=== PATIENT | female | born 1995 | race Caucasian/White ===

== ENCOUNTER 2020-05-21 14:39 | Outpatient (REF) | payer OTHER, SELFPAY ==
[2020-05-21 14:57] LABS: COVID-19 Test Negative (Negative); IDNOW Serial# 55D5AD1C
== END 2020-05-21 14:40 | disposition home or self-care (01) ==
LOC: HO.EMPCOV 14:39
PROVIDERS: Visit Provider Internal Medicine
DX: Z20.822 Contact with and (suspected) exposure to COVID-19 (principal)
CPT/HCPCS: 36415; 87635; C9803

== ENCOUNTER 2020-06-02 12:29 | Outpatient (REF) | payer OTHER, SELFPAY ==
[2020-06-02 14:26] LABS: Glucose Urine UA NEG (NEG); Leukocyte Esterase Urine TRACE (NEG); Nitrite Urine POS (NEG); Specific Gravity - Urine 1.025 (1.005-1.025); Urine Blood NEG (NEG); Urine Ketones NEG (NEG); Urine Protein NEG (NEG-TRACE)
[2020-06-02 14:30] LABS: Appearance Urine CLOUDY; Color Urine YELLOW
[2020-06-02 14:33] LABS: Bacteria Urine 3+ /LPF; Mucus Urine 2+ /LPF; RBC Urine 0 /HPF (0); Squamous Epithelial Cell Urine 2+ /LPF
== END 2020-06-02 12:30 | disposition home or self-care (01) ==
LOC: HO.LAB 12:29
PROVIDERS: Visit Provider Internal Medicine
DX: R30.0 Dysuria (principal)
CPT/HCPCS: 81001

== ENCOUNTER 2020-08-08 13:31 | Emergency (ER) | payer OTHER, SELFPAY ==
--- NOTE | ~2020-08-08 | XR_ITS ---
EXAMINATION: EXAMINATION: XR ABDOMEN CLINICAL INFORMATION: Evaluate stool burden COMPARISON: None TECHNIQUE: Frontal view. FINDINGS: There is increased amount of stool projecting over the distribution of the colon raising suspicion for constipation. There is no evidence of bowel obstruction, however. There is no evidence of abnormal calcifications. There is no acute skeletal structure changes. There is no evidence of small-bowel obstruction. There is no free air in the abdomen. XR/XR KUB IMPRESSION: Increased amount of stool in the colon suggesting constipation. Please correlate with clinical presentation.
[2020-08-08 13:48] VITALS: BP 123/75; PULSE 82; RESP 16; TEMP 36.5; O2SAT 99; BMI 22.4
[2020-08-08 14:45] LABS: Glucose Urine UA NEG (NEG); Leukocyte Esterase Urine NEG (NEG); Nitrite Urine NEG (NEG); PH 6.5 (5.0-8.0); Specific Gravity - Urine 1.015 (1.005-1.025); Urine Blood NEG (NEG); Urine Ketones NEG (NEG); Urine Protein NEG (NEG-TRACE)
[2020-08-08 14:49] LABS: Appearance Urine CLEAR; Color Urine YELLOW
[2020-08-08 14:50] LABS: UPreg QC Valid YES; Urine Pregnancy NEGATIVE (NEGATIVE)
--- NOTE | 2020-08-08 15:22 | ECG_ITS ---
Test Reason : SYNCOPE Blood Pressure : / mmHG Vent. Rate : 063 BPM Atrial Rate : 063 BPM P-R Int : 146 ms QRS Dur : 074 ms QT Int : 382 ms P-R-T Axes : 040 068 045 degrees QTc Int : 390 ms Normal sinus rhythm Normal ECG No previous ECGs available Referred By: Justyna Dumont Electronically Signed By:Ac Gill
[2020-08-08 15:50] VITALS: BP 109/55; PULSE 61
[2020-08-08 15:51] VITALS: BP 109/63; BP 114/75; PULSE 68; PULSE 72
[2020-08-08 15:52] VITALS: BP 109/55; PULSE 61; RESP 16; TEMP 37.1; O2SAT 98
--- NOTE | 2020-08-08 15:59 | ED_ITS ---
HPI - General Adult General Chief complaint: General Medical Stated complaint: DIZZNESS Time Seen by Provider: 08/08/20 15:15 Source: patient Mode of arrival: ambulatory Limitations: no limitations History of Present Illness HPI narrative: 24-year-old female previously healthy here with multiple complaints. The patient tells me that she has been constipated for the last 3 days and has only been able to pass a very small hard stools. No abdominal pain or vomiting. Has tried increasing her fluids and fruit intake with continued symptoms. Has not tried any dxnd-mlh-nhguoex medications. Also complaining of lightheadedness with position changes. No associated headache, chest pain, shortness of breath or palpitations. She is eating and drinking appropriately. Related Data Previous Rx's Medication Instructions Recorded carbamide peroxide 6.5 % ear drops 5 drp OTIC (EAR) RIGHT Q12H 4 Days 06/25/20 #15 ml ketoconazole 2 % shampoo 1 appl TOPICAL 2XW #120 ml 06/25/20 bisacodyl [Dulcolax (bisacodyl)] 5 mg PO BEDTIME 2 Days #2 tab 08/08/20 docusate sodium [Colace] 100 mg PO BID #20 cap 08/08/20 polyethylene glycol 3350 [Miralax] 17 g PO DAILY #238 g 08/08/20 Allergies Allergy/AdvReac Type Severity Reaction Status Date / Time No Known Allergies Allergy Verified 06/25/20 11:38 Review of Systems Review of Systems: Yes all other systems are reviewed and are negative Constitutional: Constitutional: Reports no additional constitutional complaints, Denies body ache(s), Denies chills, Denies fever(s), Denies headache(s) and Denies weakness Eyes: Eyes: Reports no additional eye complaints and Denies change in vision ENT: Reports dizziness, Denies headache(s) and Denies neck pain Cardiovascular: Cardiovascular: Reports no additional cardiovascular complaints, Denies chest pain, Denies leg edema and Denies dyspnea Respiratory: Respiratory: Reports no additional respiratory complaints, Denies cough and Denies dyspnea Gastrointestinal: Gastrointestinal: Denies abdominal pain, Reports constipation, Denies diarrhea, Denies nausea and Denies vomiting Genitourinary: Genitourinary: Reports no additional female genitourinary complaints and Denies urinary incontinence Musculoskeletal: Musculoskeletal: Reports no additional musculoskeletal complaints, Denies back pain, Denies arthralgias, Denies joint swelling, Denies neck pain, Denies numbness and Denies tingling Integumentary/Breasts: Skin/Breast: Reports system reviewed and no additional complaints, except as docu and Denies rash Neurologic: Denies Abnormal speech present, Reports dizziness, Denies headache(s), Denies numbness, Denies tingling and Denies weakness PMFSH Past Medical History Attestation statement: The following information was validated with the patient. Source: old records reviewed and nursing notes reviewed Medical History Seborrheic dermatitis Surgical History Finger laceration History of section Family History Family History Father Medical history unknown Mother No problems noted. Maternal Grandmother Breast cancer Diabetes Maternal Grandfather No problems noted. Social History Social History Alcohol intake: current Alcohol intake frequency: a few times a month Smoking Status: Never smoker Advance Directives: Yes Advance Directives Information Provided: Yes Advance Directives on File: No Physical Exam Vital Signs: Vital Signs: Last Vital Signs Temp 98.7 F 08/08/20 15:52 Pulse 61 08/08/20 15:52 Resp 16 08/08/20 15:52 BP 109/55 L 08/08/20 15:52 Pulse Ox 98 08/08/20 15:52 Body Mass Index 22.4 Const: General: cooperative, healthy appearing, comfortable and no acute distress Orientation/consciousness: patient oriented x3 Limitations: no limitations HENMT: Head: Yes normal to inspection Ears: hearing grossly normal bilaterally General nose exam: Normal external nose present Face and sin us: Yes normal facial exam Mouth: Normal oral and palatal mucosa present Throat: Yes posterior oropharynx normal Eyes: General: appearance normal, both eyes and all related structures Pupils: Equal, round and reactive pupils present Neck: Neck: Yes normal visual inspection Chest: Chest palpation & inspection: normal inspection of the chest Resp: Effort & Inspection: normal respiratory effort Auscultation: clear to auscultation bilaterally Cardio: Rate: regular rate Rhythm: regular rhythm Peripheral pulses: Peripheral pulses 2+ throughout GI: Inspection: Yes normal to inspection Palpation (GI): Soft to palpation and nontender Auscultation: normal bowel sounds Back/Spine/Pelvis: Thoracic/Lumbar Spine: thoracic and lumbar spine normal to inspection Skin: General skin exam: no rashes or lesions noted Neuro: General: patient oriented x3, no focal motor deficits and normal sensation to monofilament Cranial nerves: Yes CN's II-XII intact bilaterally, Yes Equal, round and reactive pupils present, Yes Bilaterally intact EOM present, Yes Nystagmus not present, Yes Normal facial strength present and Yes Midline tongue present Cognition (Neuro): normal cognition Speech: No Abnormal speech present Gait exam (Neuro): Normal gait present Motor exam (neuro): 5/5 motor strength present throughout Sensory Exam: Normal double simultaneous stimulation for sensation Coordination: [id number]-zg-[id number] test normal and rwyc-[id number] test normal Extrem: General: Yes normal to inspection Course Course Course Narrative: 24-year-old female here with complaints of constipation and dizziness with position changes. Stable vital sign. Normal neuro exam. Abdomen soft nontender. Will need labs, UA, EKG, orthostatic vital signs and KUB. 1700-KUB c/w with mild constipation, no evidence of bowel obstruction. Will start patient on bowel regimen, discuss dietary choices. UA and urine negative. Orthostatics negative. Labs are pending. Sign out to Shama MCCARTHY pending a twila. Medical Decision Making MDM Narrative Medical decision making narrative: Constipation, small-bowel obstruction Anemia, electrolyte abnormality, orthostatic hypotension, , dehydration Medical Records Medical records reviewed: Yes I reviewed the patient's medical records. Lab Data Lab results reviewed: Yes I reviewed the patient's lab results. Result diagrams: 08/08/20 16:39 08/08/20 16:39 Labs: Lab Results 08/08/20 08/08/20 08/08/20 Range/Units 14:36 14:36 16:39 WBC 8.0 (4.8-10.8) X10*3/uL RBC 4.72 (4.20-5.50) X10*6/uL Hgb 14.0 (12.0-16.0) g/dl Hct 43.3 (37-47) % MCV 91.7 (80-98) fL MCH 29.7 (27.0-33.0) pg MCHC 32.3 (31.0-35.0) g/dl RDW 12.7 (11.0-16.0) % Plt Count 266 (160-400) X10*3/uL MPV 9.1 L (9.4-12.3) fL Immature Gran % (Auto) 0.1 (0.0-0.4) % Neut % (Auto) 64.9 (45-73) % Lymph % (Auto) 24.3 (20-40) % [place] % (Auto) 8.7 (2-11) % Eos % (Auto) 1.5 (0-4) % Baso % (Auto) 0.5 (0-2) % Lymph # (Auto) 2.0 (1.2-4.9) X10*3/uL [place] # (Auto) 0.7 (0.1-1.2) X10*3/uL Eos # (Auto) 0.1 (0.0-0.4) X10*3/uL Baso # (Auto) 0.0 (0.0-0.2) X10*3/uL Abs Immat Gran (auto) 0.01 (0.00-0.03) X10*3/uL Absolute Neuts (auto) 5.2 (2.0-8.3) X10*3/uL Absolute Nucleated RBC 0.000 (0.0-0.012) X10*3/uL Nucleated RBC % (auto) 0.0 (0.0-0.2) /100WBC Urine Color YELLOW Urine Appearance CLEAR Urine pH 6.5 (5.0-8.0) Ur Specific [place] 1.015 (1.005-1.025) Urine Protein NEG (NEG-TRACE) MG/DL Urine Glucose (UA) NEG (NEG) MG/DL Urine Ketones NEG (NEG) MG/DL Urine Blood NEG (NEG) Urine Nitrite NEG (NEG) Ur Leukocyte Esterase NEG (NEG) Urine Test NEGATIVE (NEGATIVE) Imaging Data Abdominal x-ray: Attestation: I personally reviewed and interpreted this imaging study as f shakirs: Radiologist's impression: CLINICAL INFORMATION: Evaluate stool burden COMPARISON: None TECHNIQUE: Frontal view. FINDINGS: There is increased amount of stool projecting over the distribution of the colon raising suspicion for constipation. There is no evidence of bowel obstruction, however. There is no evidence of abnormal calcifications. There is no acute skeletal structure changes. There is no evidence of small-bowel obstruction. There is no free air in the abdomen. XR/XR KUB IMPRESSION: Increased amount of stool in the colon suggesting constipation. Please correlate with clinical presentation. ECG Data Attestation: I personally reviewed and interpreted this ECG as follows: Interpretation: Normal sinus rhythm with rate of 63, normal IL, normal QRS, normal QTC Discharge Plan Discharge Clinical Impression: Dizziness Constipation Qualifiers: Constipation type: unspecified constipation type Qualified Code(s): K59.00 - Constipation, unspecified Patient Disposition: Home, Self-Care Instructions: Constipation (ED), Lightheadedness (ED) Additional Instructions: Increase fluids, fiber in the diet change positions slowly Prescriptions: New polyethylene glycol 3350 [Miralax] 17 gram/dose powder 17 g PO DAILY Qty: 238 RF: 0 docusate sodium [Colace] 100 mg capsule 100 mg PO BID Qty: 20 RF: 0 bisacodyl [Dulcolax (bisacodyl)] 5 mg tablet,delayed release (DR/EC) 5 mg PO BEDTIME 2 Days Qty: 2 RF: 0 No Action ketoconazole 2 % shampoo 1 appl topical 2XW Qty: 120 RF: 1 carbamide peroxide [Debrox] 6.5 % drops 5 drp otic (ear) right Q12H 4 Days Qty: 15 RF: 0 Referrals: Po,Donaldo Victoria MD [Primary Care Provider] - 2 days
[2020-08-08 16:43] LABS: MANUAL DIFF FLAG NO
[2020-08-08 16:44] LABS: Basophils Percent Auto 0.5 % (0-2); Eosinophils Absolute Auto 0.1 X10*3/uL (0.0-0.4); Eosinophils Percent Auto 1.5 % (0-4); Hematocrit 43.3 % (37-47); Imm Gran Abs Auto 0.01 X10*3/uL (0.00-0.03); Imm Gran Pct Auto 0.1 % (0.0-0.4); Lymphocytes Percent Auto 24.3 % (20-40); Mean Corpuscular HGB Conc 32.3 g/dl (31.0-35.0); Mean Corpuscular Hemoglobin 29.7 pg (27.0-33.0); Mean Corpuscular Volume 91.7 fL (80-98); Mean Platelet Volume 9.1 fL (9.4-12.3); Monocytes Absolute Auto 0.7 X10*3/uL (0.1-1.2); Monocytes Percent Auto 8.7 % (2-11); Neutrophils Absolute Auto 5.2 X10*3/uL (2.0-8.3); Neutrophils Percent Auto 64.9 % (45-73); Platelet Count 266 X10*3/uL (160-400); Red Blood Count 4.72 X10*6/uL (4.20-5.50); Red Cell Distribution Width 12.7 % (11.0-16.0)
[2020-08-08 17:08] LABS: Alanine Aminotransferase 15 U/L (0-31); Albumin Level 4.8 g/dL (3.5-5.0); Alkaline Phosphatase 77 U/L (39-117); Anion Gap 13 (12-20); Aspartate Amino Transferase 19 U/L (5-31); Bilirubin Direct 0.2 mg/dL (0.0-0.5); Bilirubin Total 0.7 mg/dL (0.0-1.0); Blood Urea Nitrogen 11 mg/dL (9-16); Carbon Dioxide 31 mmol/L (22-29); Chloride 100 mmol/L (96-108); Creatinine Clr Calc Pharmacy 80.2; Estimated Glomerular Filt Rate > 60; Glucose Random 84 mg/dL (60-115); Magnesium 2.1 mg/dL (1.6-2.6); Potassium 4.9 mmol/L (3.3-5.1); Sodium 139 mmol/L (135-145)
[2020-08-08 17:38] VITALS: BP 104/64; PULSE 64; RESP 16; O2SAT 98
== END 2020-08-08 18:04 | disposition home or self-care (01) ==
PROVIDERS: Nurse Practitioner Family; Emergency Provider Emergency Medicine; PCP Internal Medicine
DX: R42 Dizziness and giddiness (principal); K59.00 Constipation, unspecified
CPT/HCPCS: 36415; 74018; 80048; 80076; 81003; 81025; 83735; 85025; 93005; 99283; 99284

== ENCOUNTER 2020-12-19 12:56 | Emergency (ER) | payer OTHER, SELFPAY ==
[2020-12-19 13:05] VITALS: BP 101/62; PULSE 90; RESP 16; TEMP 37.1; O2SAT 97; BMI 23.4
[2020-12-19 13:30] LABS: COVID-19 Test Negative (Negative)
--- NOTE | 2020-12-19 14:11 | ED.MEDCLEAR ---
HPI - Medical Clearance General Chief complaint: Medical Clearance Stated complaint: Medical Clearance Time Seen by Provider: 12/19/20 13:22 History of Present Illness HPI Narrative: Patient presents for medical clearance after recovery from COVID, is to go back to work she needs a normal COVID test, right now she is eating drinking breathing normally has no symptoms no cough no runny nose no fever Related Information Previous Rx's Medication Instructions Recorded polyethylene glycol 3350 17 17 g PO DAILY #238 g 08/08/20 gram/dose oral powder (Miralax) clobetasol 0.05 % shampoo 1 appl TOPICAL DAILY 30 Days #118 10/08/20 ml triamcinolone acetonide 0.5 % 1 appl TOPICAL BID 10 Days #15 g 10/08/20 topical cream Allergies Allergy/AdvReac Type Severity Reaction Status Date / Time No Known Allergies Allergy Verified 10/08/20 08:54 Review of Systems Review of Systems: No fever no chills no headache no sore throat no runny nose no ear pain no loss of taste or smell no sore throat no neck pain no chest pain no cough no shortness of breath no abdominal pain no nausea vomiting or diarrhea no skin rash Yes all other systems are reviewed and are negative PMFSH Past Medical History Source: nursing notes reviewed Medical History (Updated 12/19/20 @ 13:44 by FABIO García) Anemia Constipation Dermatitis Scalp psoriasis Seborrheic dermatitis Seborrheic dermatitis of scalp Surgical History Finger laceration History of section Family History Family History Father Medical history unknown Mother No problems noted. Maternal Grandmother Breast cancer Diabetes Maternal Grandfather No problems noted. Social History Social History Alcohol intake: current Alcohol intake frequency: a few times a month Patient Tobacco Use Status: Never used Tobacco Advance Directives: No Advance Directives Information Provided: Yes Patient : No Physical Exam Vital Signs: Vital Signs: Last Vital Signs Temp 98.7 F 12/19/20 13:05 Pulse 90 12/19/20 13:05 Resp 16 12/19/20 13:05 BP 101/62 12/19/20 13:05 Pulse Ox 97 12/19/20 13:05 Body Mass Index 23.4 General appearance no acute distress cheerful and comfortable The nose is not congested The eyes are not read no discharge The pharynx is clear Neck is supple The chest is clear to auscultation bilateral Heart no murmur Abdomen soft nontender Extremities full range of motion x4 Skin no rash Course Course Course Narrative: Well-appearing patient with no complaint is medically cleared after recovery from COVID She tested positive 3 weeks ago and only had a few days of symptoms and is been asymptomatic for many days MDM - Medical Clearance Lab Data Labs: Lab Results 12/19/20 Range/Units 13:11 COVID-19 (ISAÍAS) Negative (Negative) COVID-19 Clin Com See Note Discharge Plan Discharge Clinical Impression: Normal exam Patient Disposition: Home, Self-Care Additional Instructions: Your repeat COVID test was negative You no longer have any symptoms, your physical exam was normal your vital signs normal no sign of any illness now You are cleared to return to work and for all activities Prescriptions: No Action polyethylene glycol 3350 [Miralax] 17 gram/dose powder 17 g PO DAILY Qty: 238 RF: 0 clobetasol 0.05 % shampoo 1 appl topical DAILY 30 Days Qty: 118 RF: 1 triamcinolone acetonide 0.5 % cream 1 appl topical BID 10 Days Qty: 15 RF: 1 Stand Alone Forms: Work/School Release Interventions: ED Discharge Assessment Last Done: 12/19/20 13:53 Discharge Date/Time: 12/19/20 13:54
== END 2020-12-19 13:54 | disposition home or self-care (01) ==
PROVIDERS: Emergency Provider Emergency Medicine; PCP Internal Medicine
DX: Z02.79 Encounter for issue of other medical certificate (principal); Z20.822 Contact with and (suspected) exposure to COVID-19
CPT/HCPCS: 36415; 87635; 99283

== ENCOUNTER 2021-01-04 14:58 | Emergency (ER) | payer OTHER, SELFPAY ==
[2021-01-04 15:13] VITALS: BP 115/70; PULSE 83; RESP 16; TEMP 36.7; O2SAT 99; BMI 23.4
--- NOTE | 2021-01-04 17:27 | ED.ABDPAIN ---
HPI - Abdominal Pain General Chief Complaint: Abdominal Pain Stated Complaint: blooted Time Seen by Provider: 01/04/21 17:15 Source: patient Mode of arrival: ambulatory Limitations: no limitations History of Present Illness HPI narrative: 25-year-old female states that she had a recent test at home that was positive. Patient states she has had a positive test at home in the past and that was negative when she went to the walk-in clinic. Patient also states she has been struggling with constipation the past several months. Patient states the past 2 weeks is that intermittent constipation she was recently started on polyethylene glycol with resolution of symptoms but is increased recently. Patient denies any new changes and states she has been eating lots of bananas as she thought that would help for the constipation. Patient denies fevers she did have some tea and then above that right before she came into the ED. Related Data Previous Rx's Medication Instructions Recorded polyethylene glycol 3350 17 17 g PO DAILY #238 g 08/08/20 gram/dose oral powder (Miralax) clobetasol 0.05 % shampoo 1 appl TOPICAL DAILY 30 Days #118 10/08/20 ml triamcinolone acetonide 0.5 % 1 appl TOPICAL BID 10 Days #15 g 10/08/20 topical cream bisacodyl 5 mg tablet,delayed 10 mg PO BEDTIME 90 Days #180 tab 01/04/21 release (Women's Gentle Laxative (bisacodyl)) vitamins no.144-folic 2 tab PO DAILY #90 tab 01/04/21 acid 400 mcg chewable tablet () sennosides 8.6 mg capsule (senna) 8.6 mg PO BID PRN #90 cap 01/04/21 Allergies Allergy/AdvReac Type Severity Reaction Status Date / Time No Known Allergies Allergy Verified 10/08/20 08:54 Review of Systems Review of Systems Review of systems: General: Patient denies any fever chills recent illness or falls Musculoskeletal: Denies back pain or body aches or other injuries HEENT: denies headache, runny nose, ear pain Respiratory: denies shortness of breath, cough Cardiovascular: no chest pain or palpitations : denies dysuria, frequency Abdomen: constipationno nausea vomiting denies abdominal pain Extremities: no swelling, no pain Skin: no diaphoresis Yes all other systems are reviewed and are negative Physical Exam Vital Signs: Vital Signs: Last Vital Signs Temp 98.0 F 01/04/21 15:13 Pulse 78 01/04/21 17:44 Resp 16 01/04/21 17:44 BP 106/58 L 01/04/21 17:49 Pulse Ox 98 01/04/21 17:44 Body Mass Index 23.4 General: Well-appearing well-nourished in no signs of distress HEENT: Normocephalic atraumatic Neck: No signs of JVD, no masses no tenderness or lymphadenopathy Cardiovascular: Regular rate and rhythm Respiratory: Clear to auscultation bilaterally Abdomen: Soft nontender no masses rectal exam performed guiac negative quality control inspector heading confirmed. Extremities: Normal pedal pulses no signs of edema Skin: Dry warm no rashes Back: No tenderness full ROM MDM - Abdominal Pain MDM Narrative Medical decision making narrative: Patient here with constipation that has since resolved I will give her some magnesium citrate to help her have the a nice bowel movement. Patient looks otherwise well I will send home the patient does want to test was waiting for her to give us urine. Urine is positive. I will send home with prenatals, dulcolax and senna. I explained to her she was she states she had a period last month. Its too early for US and she has no pain. She was initially upset but excited as well. . I will send home. Medical Records Attestation: I reviewed the patient's medical records. Lab Data Labs: Lab Results 01/04/21 Range/Units 17:47 Urine Test POSITIVE H (NEGATIVE) Discharge Plan Discharge Clinical Impression: Constipation, Patient Disposition: Home, Self-Care Additional Instructions: Please call follow up with her doctor if you have any other concerns please do not hesitate to come back to emergency department. Prescriptions: New senna 8.6 mg capsule 8.6 mg PO BID PRN (Reason: constipation) Qty: 90 RF: 0 bisacodyl [Women's Gentle Laxative(bisac)] 5 mg tablet,delayed release (DR/EC) 10 mg PO BEDTIME 90 Days Qty: 180 RF: 0 400 mcg tablet,chewable 2 tab PO DAILY Qty: 90 RF: 2 No Action polyethylene glycol 3350 [Miralax] 17 gram/dose powder 17 g PO DAILY Qty: 238 RF: 0 clobetasol 0.05 % shampoo 1 appl topical DAILY 30 Days Qty: 118 RF: 1 triamcinolone acetonide 0.5 % cream 1 appl topical BID 10 Days Qty: 15 RF: 1 Stand Alone Forms: Work/School Release [facility] Past Medical History Medical History (Updated 01/04/21 @ 18:12 by Amarjit Garcia DO) Anemia Constipation Dermatitis Scalp psoriasis Seborrheic dermatitis Seborrheic dermatitis of scalp Surgical History Finger laceration History of section Family History Family History Father Medical history unknown Mother No problems noted. Maternal Grandmother Breast cancer Diabetes Maternal Grandfather No problems noted. Social History Social History Alcohol intake: current Alcohol intake frequency: a few times a month Patient Tobacco Use Status: Never used Tobacco Advance Directives: No Advance Directives Information Provided: No
[2021-01-04] MEDS: Magnesium Citrate 300 ML SOLUTION PO (17:43)
[2021-01-04 17:44] VITALS: PULSE 78; RESP 16; O2SAT 98
[2021-01-04 17:49] VITALS: BP 106/58
[2021-01-04 17:59] LABS: UPreg QC Valid YES; Urine Pregnancy POSITIVE (NEGATIVE)
== END 2021-01-04 18:27 | disposition home or self-care (01) ==
PROVIDERS: Emergency Provider Student in an Organized Health Care Education/Training Program; PCP Internal Medicine
DX: O26.91 Pregnancy related conditions, unspecified, first trimester (principal); Z3A.00 Weeks of gestation of pregnancy not specified; Z79.899 Other long term (current) drug therapy
CPT/HCPCS: 81025; 99283; 99284

== ENCOUNTER 2021-01-15 12:14 | Emergency (ER) | payer OTHER, SELFPAY ==
--- NOTE | ~2021-01-15 | US_ITS ---
EXAMINATION: US PELVIS CLINICAL INFORMATION: Vaginal bleeding/clot. Lower pelvic pain. COMPARISON: None. LMP: Unknown. Gestational age by maternal dates is unknown. TECHNIQUE: Ultrasound of the maternal pelvis is performed using transabdominal transducer. M-mode Doppler is also performed. FINDINGS: There is a single intrauterine gestational sac with visible yolk sac, embryo/fetus, and cardiac activity. There is no significant subchorionic hemorrhage or hematoma. HR: 165 beats per minute. CRL (crown rump length): 3.5 cm (10 weeks 4 days +/- 4 days). CHANTALE (estimated date of delivery): 08/09/2021 +/- 4 days. MATERNAL ADNEXA: The right maternal ovary measures 2.1 x 1.3 x 2.1 cm. The left maternal ovary measures 2.0 x 1.0 x 2.0 cm. No adnexal mass. There is trace fluid in the cul-de-sac. US/US OB pelvic and transvaginal IMPRESSION: 1. Single intrauterine gestation with ultrasound gestational age of 10 weeks 4 days +/- 4 days. 2. Estimated date of delivery is 08/09/2021 +/- 4 days. 3. No adnexal mass. Trace fluid cul-de-sac.
[2021-01-15 12:16] VITALS: BP 111/60; PULSE 87; RESP 16; TEMP 36.8; O2SAT 98; BMI 22.2
[2021-01-15 12:30] LABS: Basophils Percent Auto 0.5 % (0-2); Eosinophils Absolute Auto 0.2 X10*3/uL (0.0-0.4); Eosinophils Percent Auto 2.8 % (0-4); Hematocrit 38.5 % (37-47); Hemoglobin 12.8 g/dl (12.0-16.0); Imm Gran Abs Auto 0.02 X10*3/uL (0.00-0.03); Imm Gran Pct Auto 0.2 % (0.0-0.4); Lymphocytes Absolute Auto 1.3 X10*3/uL (1.2-4.9); Lymphocytes Percent Auto 15.9 % (20-40); MANUAL DIFF FLAG NO; Mean Corpuscular HGB Conc 33.2 g/dl (31.0-35.0); Mean Corpuscular Hemoglobin 30.2 pg (27.0-33.0); Mean Corpuscular Volume 90.8 fL (80-98); Mean Platelet Volume 9.1 fL (9.4-12.3); Monocytes Absolute Auto 0.8 X10*3/uL (0.1-1.2); Monocytes Percent Auto 9.1 % (2-11); Neutrophils Absolute Auto 5.9 X10*3/uL (2.0-8.3); Neutrophils Percent Auto 71.5 % (45-73); Platelet Count 233 X10*3/uL (160-400); Red Blood Count 4.24 X10*6/uL (4.20-5.50); Red Cell Distribution Width 13.7 % (11.0-16.0); White Blood Count 8.3 X10*3/uL (4.8-10.8)
[2021-01-15 12:47] LABS: Alanine Aminotransferase 13 U/L (0-31); Albumin Level 3.9 g/dL (3.5-5.0); Alkaline Phosphatase 63 U/L (39-117); Anion Gap 10 (12-20); Aspartate Amino Transferase 15 U/L (5-31); Bilirubin Total 0.4 mg/dL (0.0-1.0); Blood Urea Nitrogen 6 mg/dL (9-16); Calcium 9.5 mg/dL (8.4-10.2); Carbon Dioxide 25 mmol/L (22-29); Chloride 107 mmol/L (96-108); Creatinine Clr Calc Pharmacy 81.6; Estimated Glomerular Filt Rate > 60; Glucose Random 69 mg/dL (60-115); Potassium 3.9 mmol/L (3.3-5.1); Sodium 138 mmol/L (135-145); Total Protein 6.7 g/dL (6.5-8.0)
[2021-01-15 14:33] VITALS: BP 87/48; PULSE 71; RESP 16; TEMP 36.6; O2SAT 97
[2021-01-15 14:46] VITALS: BP 98/59
[2021-01-15 14:50] LABS: Appearance Urine CLEAR; Color Urine YELLOW; Glucose Urine UA NEG (NEG); Leukocyte Esterase Urine NEG (NEG); Nitrite Urine NEG (NEG); Specific Gravity - Urine 1.015 (1.005-1.025); UPreg QC Valid YES; Urine Blood NEG (NEG); Urine Ketones NEG (NEG); Urine Pregnancy POSITIVE (NEGATIVE); Urine Protein NEG (NEG-TRACE)
[2021-01-15 15:07] LABS: Lipase 50 U/L (8-78); Magnesium 1.8 mg/dL (1.6-2.6)
[2021-01-15 15:34] LABS: HCG Quantitative 84518 mIU/mL
[2021-01-15] MEDS: 0.9 % Sodium Chloride 1,000 ML 999 ML IVCONT (15:47)
--- NOTE | 2021-01-15 15:58 | ED_ITS ---
HPI - General Chief complaint: Vaginal Bleeding Stated complaint: VAGINAL BLEEDING Time Seen by Provider: 01/15/21 14:30 Source: patient Mode of arrival: ambulatory History of Present Illness HPI Narrative: 25-year-old female with a past medical history of anemia, constipation, dermatitis, psoriasis, positive test on 01/04/2021 presenting to the ED complaining of vaginal bleeding/spotting since 12/31 and lower abdominal/suprapubic cramping. Also reports nausea, urinary frequency, and mild increased vaginal discharge. Denies fever, chills, vomiting, diarrhea/constipation, dysuria/hematuria MD Complaint: abdominal pain and vaginal bleeding Related Data Previous Rx's Medication Instructions Recorded polyethylene glycol 3350 17 17 g PO DAILY #238 g 08/08/20 gram/dose oral powder (Miralax) clobetasol 0.05 % shampoo 1 appl TOPICAL DAILY 30 Days #118 10/08/20 ml triamcinolone acetonide 0.5 % 1 appl TOPICAL BID 10 Days #15 g 10/08/20 topical cream bisacodyl 5 mg tablet,delayed 10 mg PO BEDTIME 90 Days #180 tab 01/04/21 release (Women's Gentle Laxative (bisacodyl)) vitamins no.144-folic 2 tab PO DAILY #90 tab 01/04/21 acid 400 mcg chewable tablet () sennosides 8.6 mg capsule (senna) 8.6 mg PO BID PRN #90 cap 01/04/21 Allergies Allergy/AdvReac Type Severity Reaction Status Date / Time No Known Allergies Allergy Verified 10/08/20 08:54 Review of Systems Review of Systems: Constitutional: No Fever, No Chills, No Fatigue, No Malaise ENT/Mouth: No Ear Pain, No sore throat, No Rhinorrhea, No Swallowing Difficulty Eyes: No Eye Pain, No Swelling, No Redness Cardiovascular: No Chest Pain, No SOB, No Edema Respiratory: No Cough, No Dyspnea Gastrointestinal: + Nausea, No Vomiting, No Diarrhea, No Constipation, + Abdominal pain Genitourinary: + irregular bleeding, No Dysuria, + Urinary Frequency, No Hematuria,+ Urgency, No Flank Pain, +vaginal d/c Musculoskeletal: No joint pain, No Myalgias, No Joint Swelling Skin: No Skin Lesions, No rash Neuro: No Weakness, No Numbness, No Paresthesias, No Dizziness Yes all other systems are reviewed and are negative [facility] Past Medical History Attestation statement: The following information was validated with the patient. Medical History (Updated 01/15/21 @ 16:32 by FABIO Hernandez) Anemia Constipation Dermatitis Scalp psoriasis Seborrheic dermatitis Seborrheic dermatitis of scalp Surgical History Finger laceration History of section Family History Family History Father Medical history unknown Mother No problems noted. Maternal Grandmother Breast cancer Diabetes Maternal Grandfather No problems noted. Social History Social History Alcohol intake: current Alcohol intake frequency: a few times a month Patient Tobacco Use Status: Never used Tobacco Advance Directives: No Advance Directives Information Provided: No Physical Exam Vital Signs: Vital Signs: Last Vital Signs Temp 98 F 01/15/21 14:33 Pulse 71 01/15/21 14:33 Resp 16 01/15/21 14:33 BP 98/59 L 01/15/21 14:46 Pulse Ox 97 01/15/21 14:33 Body Mass Index 22.2 Const: General: cooperative, healthy appearing and no acute distress Orientation/consciousness: patient oriented x3 Limitations: no limitations HENMT: Head: Yes normal to inspection Ears: hearing grossly normal bilaterally General nose exam: Normal external nose present Face and sinus: Yes normal facial exam Eyes: General: appearance normal, both eyes and all related structures EOM: EOMs intact bilaterally Neck: Neck: Yes normal visual inspection Resp: Effort & Inspection: normal respiratory effort and no respiratory distress Cardio: Rate: regular rate Heart sounds: S1 normal heart sound present and S2 normal heart sound present GI: Inspection: Yes normal to inspection Palpation (GI): Soft to palpation, nontender, no guarding and not rigid : Other: dark vaginal bleeding/discharge noted on exam from Os. Os closed. No active hemorrhage General: Yes no CVA tenderness Speculum Exam - Vagina: vaginal bleeding Bimanual exam- vagina & uterus: no cervical motion tenderness Bimanual Exam- Adnexa, other: tender (With mild adnexal fullness) on the right and no masses noted OB/external & speculum: vaginal bleeding Back/Spine/Pelvis: Back: no CVA tenderness Skin: Rashes: no rashes Wounds: no wounds Neuro: General: patient oriented x3 Gait exam (Neuro): Normal gait present Extrem: General: Yes normal to inspection Course Course Course Narrative: -no leukocytosis. H&H is stable. Labs otherwise un remarkable. Beta quant 84,518 -UA negative. -1600--US OB pelvic and transvaginal IMPRESSION: 1. Single intrauterine gestation with ultrasound gestational age of? 10 weeks 4 days +/- 4 days. 2. Estimated date of delivery is 08/09/2021 +/- 4 days. 3. No adnexal mass. Trace fluid cul-de-sac. >> results discussed with patient discussed with patient she should have repeat hCG in 48 hours with OBGYN. Discussed worrisome signs and symptoms of increased pain, increased bleeding, nausea, inability tolerate p.o. to return to the ED immediately, she verbalized understanding feel safe for discharge home MDM - OB/Uterine Contractions MDM Narrative Medical decision making narrative: 25-year-old female with a past medical history of anemia, constipation, dermatitis, psoriasis, positive test on 01/04/2021 presenting to the ED complaining of vaginal bleeding/spotting since 12/31 and lower abdominal/suprapubic cramping. On exam VSS, NAD, abdomen soft/nontender. Dark vaginal bleeding/discharge noted on pelvic with right adnexal fullness with mild tenderness. No CMT or masses appreciated. No CVAT. No active hemorrhage. Concern for threatened vs Ectopic vs ovarian cyst. Lower concern for appendicitis/diverticulitis. Rule out UTI and anemia Plan: Labs, UA, pelvic ultrasound, IVF, reassess, STI testing Medical Records Attestation: I reviewed the patient's medical records. Lab Data Attestation: I reviewed the patient's lab results. Result diagrams: 01/15/21 12:25 01/15/21 12:25 Labs: Lab Results 01/15/21 01/15/21 01/15/21 Range/Units 12:25 12:25 14:32 WBC 8.3 (4.8-10.8) X10*3/uL RBC 4.24 (4.20-5.50) X10*6/uL Hgb 12.8 (12.0-16.0) g/dl Hct 38.5 (37-47) % MCV 90.8 (80-98) fL MCH 30.2 (27.0-33.0) pg MCHC 33.2 (31.0-35.0) g/dl RDW 13.7 (11.0-16.0) % Plt Count 233 (160-400) X10*3/uL MPV 9.1 L (9.4-12.3) fL Immature Gran % (Auto) 0.2 (0.0-0.4) % Neut % (Auto) 71.5 (45-73) % Lymph % (Auto) 15.9 L (20-40) % [place] % (Auto) 9.1 (2-11) % Eos % (Auto) 2.8 (0-4) % Baso % (Auto) 0.5 (0-2) % Lymph # (Auto) 1.3 (1.2-4.9) X10*3/uL [place] # (Auto) 0.8 (0.1-1.2) X10*3/uL Eos # (Auto) 0.2 (0.0-0.4) X10*3/uL Baso # (Auto) 0.0 (0.0-0.2) X10*3/uL Abs Immat Gran (auto) 0.02 (0.00-0.03) X10*3/uL Absolute Neuts (auto) 5.9 (2.0-8.3) X10*3/uL Absolute Nucleated RBC 0.000 (0.0-0.012) X10*3/uL Nucleated RBC % (auto) 0.0 (0.0-0.2) /100WBC Sodium 138 (135-145) mmol/L Potassium 3.9 D (3.3-5.1) mmol/L Chloride 107 (96-108) mmol/L Carbon Dioxide 25 (22-29) mmol/L Anion Gap 10 L (12-20) BUN 6 L (9-16) mg/dL Creatinine 0.75 (0.5-1.4) mg/dL Estim Creat Clear Calc 81.6 Estimated GFR > 60 Random Glucose 69 (60-115) mg/dL Calcium 9.5 (8.4-10.2) mg/dL Magnesium 1.8 (1.6-2.6) mg/dL Total Bilirubin 0.4 (0.0-1.0) mg/dL AST 15 (5-31) U/L ALT 13 (0-31) U/L Alkaline Phosphatase 63 (39-117) U/L Total Protein 6.7 (6.5-8.0) g/dL Albumin 3.9 (3.5-5.0) g/dL Lipase 50 (8-78) U/L Beta HCG, Quant 41639 mIU/mL Urine Color YELLOW Urine Appearance CLEAR Urine pH 7.0 (5.0-8.0) Ur Specific [place] 1.015 (1.005-1.025) Urine Protein NEG (NEG-TRACE) MG/DL Urine Glucose (UA) NEG (NEG) MG/DL Urine Ketones NEG (NEG) MG/DL Urine Blood NEG (NEG) Urine Nitrite NEG (NEG) Ur Leukocyte Esterase NEG (NEG) Urine Test (NEGATIVE) 01/15/21 Range/Units 14:32 WBC (4.8-10.8) X10*3/uL RBC (4.20-5.50) X10*6/uL Hgb (12.0-16.0) g/dl Hct (37-47) % MCV (80-98) fL MCH (27.0-33.0) pg MCHC (31.0-35.0) g/dl RDW (11.0-16.0) % Plt Count (160-400) X10*3/uL MPV (9.4-12.3) fL Immature Gran % (Auto) (0.0-0.4) % Neut % (Auto) (45-73) % Lymph % (Auto) (20-40) % [place] % (Auto) (2-11) % Eos % (Auto) (0-4) % Baso % (Auto) (0-2) % Lymph # (Auto) (1.2-4.9) X10*3/uL [place] # (Auto) (0.1-1.2) X10*3/uL Eos # (Auto) (0.0-0.4) X10*3/uL Baso # (Auto) (0.0-0.2) X10*3/uL Abs Immat Gran (auto) (0.00-0.03) X10*3/uL Absolute Neuts (auto) (2.0-8.3) X10*3/uL Absolute Nucleated RBC (0.0-0.012) X10*3/uL Nucleated RBC % (auto) (0.0-0.2) /100WBC Sodium (135-145) mmol/L Potassium (3.3-5.1) mmol/L Chloride (96-108) mmol/L Carbon Dioxide (22-29) mmol/L Anion Gap (12-20) BUN (9-16) mg/dL Creatinine (0.5-1.4) mg/dL Estim Creat Clear Calc Estimated GFR Random Glucose (60-115) mg/dL Calcium (8.4-10.2) mg/dL Magnesium (1.6-2.6) mg/dL Total Bilirubin (0.0-1.0) mg/dL AST (5-31) U/L ALT (0-31) U/L Alkaline Phosphatase (39-117) U/L Total Protein (6.5-8.0) g/dL Albumin (3.5-5.0) g/dL Lipase (8-78) U/L Beta HCG, Quant mIU/mL Urine Color Urine Appearance Urine pH (5.0-8.0) Ur Specific [place] (1.005-1.025) Urine Protein (NEG-TRACE) MG/DL Urine Glucose (UA) (NEG) MG/DL Urine Ketones (NEG) MG/DL Urine Blood (NEG) Urine Nitrite (NEG) Ur Leukocyte Esterase (NEG) Urine Test POSITIVE H (NEGATIVE) Discharge Plan Discharge Clinical Impression: Vaginal bleeding affecting early Patient Disposition: Home, Self-Care Instructions: Threatened Miscarriage (ED) Additional Instructions: Your blood work was reassuring today in the emergency department Your ultrasound shows an intrauterine at 10 weeks 4 days You were tested for sexually transmitted infections, the results should be back in 48 hours, you will be called with positive results only You should have repeat hCG/ blood work done in 48 hours, call your OBGYN for this If her symptoms persist or worsen, abdominal pain becomes persistent, worsening, you have worsening vaginal bleeding, clots, lightheadedness/dizziness please return to the ED immediately It is possible this is an early miscarriage versus normal complications Prescriptions: No Action polyethylene glycol 3350 [Miralax] 17 gram/dose powder 17 g PO DAILY Qty: 238 RF: 0 senna 8.6 mg capsule 8.6 mg PO BID PRN (Reason: constipation) Qty: 90 RF: 0 bisacodyl [Women's Gentle Laxative(bisac)] 5 mg tablet,delayed release (DR/EC) 10 mg PO BEDTIME 90 Days Qty: 180 RF: 0 400 mcg tablet,chewable 2 tab PO DAILY Qty: 90 RF: 2 clobetasol 0.05 % shampoo 1 appl topical DAILY 30 Days Qty: 118 RF: 1 triamcinolone acetonide 0.5 % cream 1 appl topical BID 10 Days Qty: 15 RF: 1 Referrals: Sanchez Bowman MD [Physician] - 2 days
[2021-01-15 16:00] LABS: Prothrombin Time 10.8 SEC (9.9-13.0)
[2021-01-15 16:03] LABS: Partial Thromboplastin Time 32.8 SEC (24.1-38.0)
[2021-01-15 16:34] VITALS: BP 115/64; PULSE 68; RESP 16; TEMP 36.7; O2SAT 99
[2021-01-16 13:35] LABS: CT PCR NOT DETECTED (Not Detect.); NG PCR NOT DETECTED (Not Detect.)
[2021-01-16 14:14] LABS: BV Int Neg Control Negative (Negative); BV Int Pos Control Positive (Positive)
== END 2021-01-15 17:22 | disposition home or self-care (01) ==
PROVIDERS: Physician Assistant; Emergency Provider Emergency Medicine Emergency Medical Services; PCP Internal Medicine
DX: O20.9 Hemorrhage in early pregnancy, unspecified (principal); Z3A.10 10 weeks gestation of pregnancy
CPT/HCPCS: 36415; 76801; 76817; 80053; 81003; 81025; 83690; 83735; 84702; 85025; 85610; 85730; 87480; 87491; 87510; 87591; 87660; 96360; 96361; 99284

== ENCOUNTER → 2021-01-21 09:58 | Outpatient (BNVA) | payer OTHER, SELFPAY | PROVIDERS: PCP Internal Medicine; Visit Provider Obstetrics & Gynecology | DX: O99.011 Anemia complicating pregnancy, first trimester (principal); O99.321 Drug use complicating pregnancy, first trimester; O99.711 Diseases of the skin and subcutaneous tissue complicating pregnancy, first trimester; L21.9 Seborrheic dermatitis, unspecified; O34.219 Maternal care for unspecified type scar from previous cesarean delivery; Z3A.11 11 weeks gestation of pregnancy; Z79.899 Other long term (current) drug therapy | CPT/HCPCS: 99212 ==

== ENCOUNTER 2021-01-29 08:30 | Outpatient (REF) | payer OTHER, SELFPAY ==
--- NOTE | ~2021-01-29 | US_ITS ---
EXAMINATION: OBSTETRICAL ULTRASOUND, FIRST TRIMESTER HISTORY: 25-year-old at 12.4 weeks of gestation NT screening COMPARISON: 01/15/2021 TECHNIQUE: Real time transabdominal imaging with color and M-mode Doppler. FINDINGS: A single, live IUP CRL of 58.8 mm c/w 12.3wks is noted. Heart Rate: 144 beats per minute. Normal yolk sac seen. NT was 0.8.mm. NB Present The embryo appears sonographically wnl for this GA. Both maternal ovaries are seen and appear normal. GESTATIONAL AGE: 1. Established GA: 12.4 wks 2. GA from [facility]: 12.3 wks ESTIMATED DATE OF DELIVERY: 1. Established CHANTALE: 08/09/2021 2. CHANTALE from [facility]: 08/10/2021 US/US OB 1T nuc measure IMPRESSION: 1. A single live IUP 2. Size equals dates 3. NT of 0.8 mm MFM Consultation: I reviewed the ultrasound findings along with significance of NT measurement. The NT of less than 3mm is generally reassuring. However, the sensitivity for T21 detection is only 60%. I reviewed the availability of serum aneuploidy screening which includes cell-free DNA and placental protein based tests. I discussed the sensitivity, false-positive rate, and other limitations associated with each test. I also reviewed the availability of invasive diagnostic tests that are associated small but definite risk of miscarriage. We also reviewed the differences between screening tests and diagnostic tests. After our discussion, she opted for the First trimester screening that is based on cell-free DNA or non-invasive testing (NIPT). The result will be faxed to your office in approximately 7 days. A follow up at 18 weeks for survey has been scheduled. Thank you very much for this referral. Total time 30 minutes. The time spent was devoted to counseling the patient about the disease and diagnosis, coordinating care including reviewing her records, pertinent lab data and studies, as well as discussing diagnostic evaluation and workup, plan therapeutic interventions and future disposition of care. This includes any additional research needed to obtain further information in formulating the plan of care of this patient. This note was generated with a voice recognition program. Please excuse any errors which may have been overlooked during my review of this note. Sometimes these errors may affect the content or meaning of a given sentence.
== END 2021-01-29 08:31 | disposition home or self-care (01) ==
LOC: HO.US 08:30
PROVIDERS: Visit Provider Obstetrics & Gynecology
DX: Z34.91 Encounter for supervision of normal pregnancy, unspecified, first trimester (principal); Z3A.11 11 weeks gestation of pregnancy
CPT/HCPCS: 76813

== ENCOUNTER 2021-02-12 10:36 | Outpatient (REF) | payer OTHER, SELFPAY ==
[2021-02-13 13:44] LABS: CT PCR NOT DETECTED (Not Detect.); NG PCR NOT DETECTED (Not Detect.)
[2021-02-14 14:35] LABS: BV Int Neg Control Negative (Negative); BV Int Pos Control Positive (Positive)
== END 2021-02-12 10:37 | disposition home or self-care (01) ==
LOC: HO.LAB 10:36
PROVIDERS: PCP Internal Medicine; Visit Provider Advanced Practice Midwife
DX: Z34.92 Encounter for supervision of normal pregnancy, unspecified, second trimester (principal); Z3A.14 14 weeks gestation of pregnancy
CPT/HCPCS: 81003; 87480; 87491; 87510; 87591; 87660; 99212

== ENCOUNTER 2021-03-12 10:10 | Outpatient (REF) | payer OTHER, SELFPAY ==
--- NOTE | ~2021-03-12 | US_ITS ---
EXAMINATION: US OBSTETRICAL CLINICAL INFORMATION: 25-year-old at 18.4 weeks of gestation Suspected anomaly COMPARISON: 01/29/2021 TECHNIQUE: Real-time transabdominal ultrasound was performed using C1-5 megahertz transducer. FINDINGS: A single, active, fetus is seen in vertex presentation. The placenta is posterior without previa, and the amniotic fluid volume is wnl. MEASUREMENTS: 1. Biparietal Diameter: 4.1 cm; 18.3 wks 2. Occipital Frontal Diameter: 4.9 cm 3. Head Circumference: 14.5 cm; 17.5 wks 4. Abdominal Circumference: 12.3 cm; 18.0 wks 5. Femur Length: 2.8 cm; 18.4 wks 6. Humerus Length: 2.9 cm; 19.4 wks 7. Tibia Length: 2.3 cm; 18.1 wks 8. Ulna Length: 2.4 cm; 18.4 wks 9. Lateral ventricle: 0.5 cm 10. Cerebellum: 1.73 cm; 18.2 wks 11. Cisterna Magna: 0.35 cm 12. Nuchal Fold: 3.1 mm 13. Heart Rate: 152 beats per minute Rt ovary: Unable to visualize Lt ovary: normal Cervical length 3.0 cm on T/A. GESTATIONAL AGE: 1. Established GA: 18.4 wks 2. GA from [facility]: 18.2 wks ESTIMATED DATE OF DELIVERY: 1. Established CHANTALE: 08/09/2021 2. CHANTALE from [facility]: 08/11/2021 ANATOMY: The visualized anatomy includes but not limited to: 1. Cranium: Normal 2. Intracranial anatomy: cavum septum pellucidi, lateral ventricles, choroid plexus, cerebellum, posterior fossa, third and fourth ventricles. 3. face: orbits, lip/palate, profile, nasal bone 4. Heart: four-chamber view of the heart, ventricular septum, foramen ovale, pulmonary vein, left and right outflow tracts, three-vessel view, 3 vessel trachea view, aortic and ductal arches, situs.. 5. Diaphragm: Normal 6. Abdominal wall: Normal 7. Cord Insertion: Normal 8. Spine: Cervical, thoracic, lumbar, sacral. 9. Stomach: Normal size and shape 10. Right Kidney: Normal 11. Left Kidney: Normal 12. 3 vessel cord: Normal 13. Upper extremity: Open hands, fifth digit. 14. Lower extremity: Tibia, fibula, bilateral feet. 15. Bladder: Normal 16. Genitalia: Female, patient aware US/US OB /maternal detail IMPRESSION: 1. Single, living, intrauterine with appropriate biometry. 2. Normal survey DISCUSSION: I reviewed today's ultrasound findings. We discussed the limitations of ultrasound in diagnosing aneuploidy and other congenital abnormalities. I reviewed the differences between screening test and diagnostic test. Amniocentesis was discussed and declined. She was informed that the baseline incidence of congenital abnormalities is approximately 3-5%. Not all these conditions are diagnosable in utero. RECOMMENDATIONS: 1. PRN Thank you for allowing me to participate in her care. Total time 20 minutes. The time spent was devoted to counseling the patient about the disease and diagnosis, coordinating care including reviewing her records, pertinent lab data and studies, as well as discussing diagnostic evaluation and workup, plan therapeutic interventions and future disposition of care. This includes any additional research needed to obtain further information in formulating the plan of care of this patient. This note was generated with a voice recognition program. Please excuse any errors which may have been overlooked during my review of this note. Sometimes these errors may affect the content or meaning of a given sentence.
== END 2021-03-12 10:11 | disposition home or self-care (01) ==
LOC: HO.US 10:10
PROVIDERS: PCP Internal Medicine; Visit Provider Advanced Practice Midwife
DX: O34.219 Maternal care for unspecified type scar from previous cesarean delivery (principal); Z3A.18 18 weeks gestation of pregnancy; Z36.3 Encounter for antenatal screening for malformations
CPT/HCPCS: 76811; 81003; 99212

== ENCOUNTER → 2021-04-12 11:03 | Outpatient (BNVA) | payer OTHER, SELFPAY | PROVIDERS: PCP Internal Medicine; Visit Provider Advanced Practice Midwife | DX: Z34.82 Encounter for supervision of other normal pregnancy, second trimester (principal); Z3A.23 23 weeks gestation of pregnancy | CPT/HCPCS: 81003; 99212 ==

== ENCOUNTER 2021-04-14 08:34 | Outpatient (REF) | payer OTHER, SELFPAY ==
[2021-04-14 10:37] LABS: Hematocrit 37.1 % (37.0-47.0); Hemoglobin 12.1 g/dl (12.0-16.0); Mean Corpuscular HGB Conc 32.6 g/dl (31.0-35.0); Mean Corpuscular Hemoglobin 30.5 pg (27.0-33.0); Mean Corpuscular Volume 93.5 fL (80.0-98.0); Platelet Count 247 X10*3/uL (160-400); Red Blood Count 3.97 X10*6/uL (4.20-5.50); Red Cell Distribution Width 12.9 % (11.0-16.0); White Blood Count 7.9 X10*3/uL (4.8-10.8)
[2021-04-14 11:01] LABS: Glucose 1 Hour PP 50gm Dose 106 mg/dL (60-140)
[2021-04-14 11:20] LABS: Syphilis Screen Nonreactive (Nonreactive)
[2021-04-14 11:22] LABS: HBsAGNum1 0.22 S/CO (0.00-0.99); Hepatitis B Surface Antigen Negative (Negative); ~HepC Num1 0.07 S/CO (0.00-0.79); ~Hepatitis C Antibody Nonreactive (Nonreactive)
[2021-04-14 11:23] LABS: Amphetamine Screen Urine Not Detected (Not Detect); Barbiturates, Urine Not Detected (Not Detect); Benzodiazepines Screen Urine Not Detected (Not Detect); Cannabinoid Screen Urine Not Detected (Not Detect); Cocaine Screen Urine Not Detected (Not Detect); Fentanyl, urine Not Detected (Not Detect); Opiate Screen Urine Not Detected (Not Detect); Phencyclidine Screen Urine Not Detected (Not Detect)
[2021-04-14 11:54] LABS: HIV AB/AG Nonreactive (Nonreactive); HIV Num 1 0.17 S/CO (0.00-0.99)
[2021-04-16 01:38] LABS: Rubella IgG Antibody 4.84 Index
== END 2021-04-14 08:35 | disposition home or self-care (01) ==
LOC: HO.LAB 08:34
PROVIDERS: Absent Provider Internal Medicine; PCP Internal Medicine; Visit Provider Obstetrics & Gynecology
DX: Z34.90 Encounter for supervision of normal pregnancy, unspecified, unspecified trimester (principal); Z11.3 Encounter for screening for infections with a predominantly sexual mode of transmission
CPT/HCPCS: 80307; 85027; 86762; 86780; 86787; 86803; 86850; 86900; 86901; 87086; 87340; 87389

== ENCOUNTER → 2021-05-11 14:51 | Outpatient (BNVA) | payer OTHER, SELFPAY | PROVIDERS: PCP Internal Medicine; Visit Provider Advanced Practice Midwife | DX: Z34.82 Encounter for supervision of other normal pregnancy, second trimester (principal); Z3A.27 27 weeks gestation of pregnancy | CPT/HCPCS: 81003; 99212 ==

== ENCOUNTER → 2021-06-01 13:09 | Outpatient (BNVA) | payer OTHER, SELFPAY | PROVIDERS: PCP Internal Medicine; Visit Provider Advanced Practice Midwife | DX: O36.5930 Maternal care for other known or suspected poor fetal growth, third trimester, not applicable or unspecified (principal); Z3A.30 30 weeks gestation of pregnancy | CPT/HCPCS: 90471; 90715; 99212 ==

== ENCOUNTER 2021-06-04 08:28 | Outpatient (REF) | payer OTHER, SELFPAY ==
--- NOTE | ~2021-06-04 | US_ITS ---
EXAMINATION: OBSTETRICAL ULTRASOUND, Follow up HISTORY: 25-year-old at the 30.4 weeks of gestation Size less than dates COMPARISON: 03/12/2021 TECHNIQUE: Real time transabdominal imaging with color and M-mode Doppler. PRESENTATION: Vertex PLACENTA LOCATION: Posterior without previa AMNIOTIC FLUID: BRENDA 11.8 cm MEASUREMENTS: 1. Biparietal Diameter: 7.1 cm; 28.4 wks 2. Head Circumference: 27.1 cm; 29.4 wks 3. Abdominal Circumference: 25.0 cm; 29.2 wks 4. Femur Length: 5.6 cm; 29.2 wks 5. Heart Rate: 147 beats per minute WEIGHT: EFW: 1358 grams (3 lbs 0 oz) -- 7 %. BIOPHYSICAL PROFILE: Motion: 2 Tone: 2 Breathin Amniotic Fluid: 2 Total score: 8/8 UA Doppler: S/D3.4 GESTATIONAL AGE: 1. Established GA: 30.4 wks 2. GA from [facility]: 29.2 wks ESTIMATED DATE OF DELIVERY: 1. Established CHANTALE: 08/09/2021 2. CHANTALE from [facility]: 08/18/2021 US/US OB follow up IMPRESSION: 1. A single active fetus is in vertex presentation 2. Size less than dates, EFW corresponds to 7th percentile 3. Reassuring biophysical profile 4. Normal SD ratio in the umbilical artery. I reviewed today's ultrasound findings as well as the limitations of ultrasound and estimating weights. Approximately 70% of the fetuses whose EFW falls below the 10th percentile are constitutionally small but healthy fetuses growing to their full genetic potential. Approximately 30% may be experiencing placental insufficiency and not growing to their full genetic potential. Often it is difficult to distinguish the two in utero. The evaluation of the umbilical Doppler artery, amniotic fluid volume as well as biophysical profile scores are reassuring today. The patient had the 2 full-term deliveries. The weight of both shoulder and were approximately 5 pounds. Thank you very much for this referral. Total time 30 minutes. The time spent was devoted to counseling the patient about the disease and diagnosis, coordinating care including reviewing her records, pertinent lab data and studies, as well as discussing diagnostic evaluation and workup, plan therapeutic interventions and future disposition of care. This includes any additional research needed to obtain further information in formulating the plan of care of this patient. This note was generated with a voice recognition program. Please excuse any errors which may have been overlooked during my review of this note. Sometimes these errors may affect the content or meaning of a given sentence.
== END 2021-06-04 08:29 | disposition home or self-care (01) ==
LOC: HO.US 08:28
PROVIDERS: Visit Provider Advanced Practice Midwife
DX: O36.5930 Maternal care for other known or suspected poor fetal growth, third trimester, not applicable or unspecified (principal)
CPT/HCPCS: 76816

== ENCOUNTER 2021-06-11 10:02 | Outpatient (REF) | payer OTHER, SELFPAY ==
--- NOTE | ~2021-06-11 | US_ITS ---
EXAMINATION: US OBSTETRICAL (BIOPHYSICAL PROFILE) CLINICAL INFORMATION: 25-year-old at 31.4 weeks of gestation Size less than dates COMPARISON: 05/27/2021 TECHNIQUE: Biophysical profile is performed over 30 minutes with assessment of breathing, gross body movement, tone, and qualitative amniotic fluid volume. FINDINGS: POSITION: Cephalic PLACENTA: Posterior without previa AMNIOTIC FLUID INDEX: 11.7 cm CARDIAC ACTIVITY: 138 beats per minute BIOPHYSICAL PROFILE: Motion: 2 Tone: 2 Breathin Amniotic Fluid: 2 The total biophysical score is 8/8 US/US OB biophysical profile IMPRESSION: 1. Single intrauterine gestation in vertex position. 2. Reassuring BPP and BRENDA Thank you for allowing me to participate in her care. Follow up in one week for repeat growth and the testing. This note was generated with a voice recognition program. Please excuse any errors which may have been overlooked during my review of this note. Sometimes these errors may affect the content or meaning of a given sentence.
== END 2021-06-11 10:03 | disposition home or self-care (01) ==
LOC: HO.US 10:02
PROVIDERS: PCP Internal Medicine; Visit Provider Advanced Practice Midwife
DX: O36.5990 Maternal care for other known or suspected poor fetal growth, unspecified trimester, not applicable or unspecified (principal); Z3A.31 31 weeks gestation of pregnancy
CPT/HCPCS: 76819

== ENCOUNTER → 2021-06-15 10:08 | Outpatient (BNVA) | payer OTHER, SELFPAY | PROVIDERS: PCP Internal Medicine; Visit Provider Advanced Practice Midwife | DX: O36.5930 Maternal care for other known or suspected poor fetal growth, third trimester, not applicable or unspecified (principal); Z3A.32 32 weeks gestation of pregnancy | CPT/HCPCS: 59025; 99212 ==

== ENCOUNTER 2021-06-18 08:43 | Outpatient (REF) | payer OTHER, SELFPAY ==
--- NOTE | ~2021-06-18 | US_ITS ---
EXAMINATION: OBSTETRICAL ULTRASOUND, Follow up HISTORY: 25-year-old at the 32.4 weeks of gestation FGR COMPARISON: 06/11/2021 TECHNIQUE: Real time transabdominal imaging with color and M-mode Doppler. PRESENTATION: Vertex PLACENTA LOCATION: Posterior without previa AMNIOTIC FLUID: BRENDA 9.4 cm MEASUREMENTS: 1. Biparietal Diameter: 7.4 cm; 29.4 wks 2. Head Circumference: 27.8 cm; 30.3 wks 3. Abdominal Circumference: 26.6 cm; 30.5 wks 4. Femur Length: 6.2 cm; 32.1 wks 5. Heart Rate: 136 beats per minute WEIGHT: EFW: 1745 grams (3 lbs 14 oz) -- 11 %. BIOPHYSICAL PROFILE: Motion: 2 Tone: 2 Breathin Amniotic Fluid: 2 Total score: 8/8 UA Doppler: SD 3.3, within normal limits. GESTATIONAL AGE: 1. Established GA: 32.4 wks 2. GA from [facility]: 31.0 wks ESTIMATED DATE OF DELIVERY: 1. Established CHANTALE: 08/09/2021 2. CHANTALE from [facility]: 08/20/2021 US/US OB velocimetry umbilical ar IMPRESSION: 1. A single active fetus is in vertex presentation 2. Size less than dates, EFW corresponds to 11 percentile. However compared to her prior exam, there has been an appropriate interval growth. 3. Reassuring biophysical profile 4. Normal SD ratio in the umbilical artery I reviewed today's ultrasound findings and informed her that the fetus has grown appropriately since 06/04/2021 exam. In addition the BPP and the UA Doppler are within normal limits. Given the appropriate interval growth, I would not administer betamethasone at this time. Approximately 70% of the fetuses whose EFW falls below the 10th percentile are constitutionally small but healthy fetuses growing to their full genetic potential. Approximately 30% may be experiencing placental insufficiency and not growing to their full genetic potential. Often it is difficult to distinguish the two in utero. The evaluation of the umbilical Doppler artery, amniotic fluid volume as well as biophysical profile scores are reassuring today. The patient had the 2 full-term deliveries. The weight of both babies were approximately 5 pounds. She is to continue weekly surveillance. Thank you very much for this referral. Total time 30 minutes. The time spent was devoted to counseling the patient about the disease and diagnosis, coordinating care including reviewing her records, pertinent lab data and studies, as well as discussing diagnostic evaluation and workup, plan therapeutic interventions and future disposition of care. This includes any additional research needed to obtain further information in formulating the plan of care of this patient. This note was generated with a voice recognition program. Please excuse any errors which may have been overlooked during my review of this note. Sometimes these errors may affect the content or meaning of a given sentence.
--- NOTE | ~2021-06-18 | US_ITS ---
EXAMINATION: OBSTETRICAL ULTRASOUND, Follow up HISTORY: 25-year-old at the 32.4 weeks of gestation FGR COMPARISON: 06/11/2021 TECHNIQUE: Real time transabdominal imaging with color and M-mode Doppler. PRESENTATION: Vertex PLACENTA LOCATION: Posterior without previa AMNIOTIC FLUID: BRENDA 9.4 cm MEASUREMENTS: 1. Biparietal Diameter: 7.4 cm; 29.4 wks 2. Head Circumference: 27.8 cm; 30.3 wks 3. Abdominal Circumference: 26.6 cm; 30.5 wks 4. Femur Length: 6.2 cm; 32.1 wks 5. Heart Rate: 136 beats per minute WEIGHT: EFW: 1745 grams (3 lbs 14 oz) -- 11 %. BIOPHYSICAL PROFILE: Motion: 2 Tone: 2 Breathin Amniotic Fluid: 2 Total score: 8/8 UA Doppler: SD 3.3, within normal limits. GESTATIONAL AGE: 1. Established GA: 32.4 wks 2. GA from A: 31.0 wks ESTIMATED DATE OF DELIVERY: 1. Established CHANTALE: 08/09/2021 2. CHANTALE from A: 08/20/2021 US/US OB follow up IMPRESSION: 1. A single active fetus is in vertex presentation 2. Size less than dates, EFW corresponds to 11 percentile. However compared to her prior exam, there has been an appropriate interval growth. 3. Reassuring biophysical profile 4. Normal SD ratio in the umbilical artery I reviewed today's ultrasound findings and informed her that the fetus has grown appropriately since 06/04/2021 exam. In addition the BPP and the UA Doppler are within normal limits. Given the appropriate interval growth, I would not administer betamethasone at this time. Approximately 70% of the fetuses whose EFW falls below the 10th percentile are constitutionally small but healthy fetuses growing to their full genetic potential. Approximately 30% may be experiencing placental insufficiency and not growing to their full genetic potential. Often it is difficult to distinguish the two in utero. The evaluation of the umbilical Doppler artery, amniotic fluid volume as well as biophysical profile scores are reassuring today. The patient had the 2 full-term deliveries. The weight of both babies were approximately 5 pounds. She is to continue weekly surveillance. Thank you very much for this referral. Total time 30 minutes. The time spent was devoted to counseling the patient about the disease and diagnosis, coordinating care including reviewing her records, pertinent lab data and studies, as well as discussing diagnostic evaluation and workup, plan therapeutic interventions and future disposition of care. This includes any additional research needed to obtain further information in formulating the plan of care of this patient. This note was generated with a voice recognition program. Please excuse any errors which may have been overlooked during my review of this note. Sometimes these errors may affect the content or meaning of a given sentence.
== END 2021-06-18 08:44 | disposition home or self-care (01) ==
LOC: HO.US 08:43
PROVIDERS: Visit Provider Advanced Practice Midwife
DX: O36.5930 Maternal care for other known or suspected poor fetal growth, third trimester, not applicable or unspecified (principal); O36.8330 Maternal care for abnormalities of the fetal heart rate or rhythm, third trimester, not applicable or unspecified; O34.219 Maternal care for unspecified type scar from previous cesarean delivery; Z3A.32 32 weeks gestation of pregnancy; Z79.3 Long term (current) use of hormonal contraceptives
CPT/HCPCS: 76816; 76820; 81003; 99212

== ENCOUNTER 2023-07-11 08:49 | Outpatient (AMB) | payer OTHER, SELFPAY ==
[2023-07-11 08:54] VITALS: BP 98/60; BMI 21.9
--- NOTE | 2023-07-11 08:54 | MHC.PC.OV ---
Vital Signs 07/11/23 08:54 Height 5 ft Weight 112 lb BMI 21.9 BP 98/60 Blood Pressure Location Lt brachial Position Sitting Intake Visit Reasons: PE Intake Note: Patient here for a physical exam Consumer Product Advisor Required: No Accompanied by: Self / Same As Patient Allergies No Known Allergies Allergy (Verified 07/11/23 09:05) Medication List - Last Reconciled 07/11/23 by Nichole Richard MD No Known Home Meds Tobacco use date assessed: 07/11/23 Dental Screening Dental Screen Date: 07/11/23 Did you have a dental visit in the last 12 months?: Yes Did you have a dental problem in the last 6 months where you did not have access to dental care?: No Was dental information given to patient?: Patient has dentist HPI HPI Comments History of Present Illness Details This is a 19-year-old female that comes for her physical exam. Last Pap smear was 2019. No chest pain or shortness of breath. No change in bowel or bladder habits. [facility] Medical History IUGR (intrauterine growth restriction) affecting care of mother Seborrheic dermatitis of scalp Dermatitis Scalp psoriasis Constipation Anemia Seborrheic dermatitis Surgical History H/O tubal ligation Finger laceration History of section Family History Father Medical history unknown Mother No problems noted. Maternal Grandmother Breast cancer Diabetes Maternal Grandfather No problems noted. Social History Household Members: Children Both parents involved: Yes Housing: Apartment Alcohol intake: current Alcohol intake frequency: a few times a month Alcohol type: wine Patient Tobacco Use Status: Never used Tobacco e-Cigarette/Vaping Use: Never Used Second Hand Smoke Exposure: No Trauma History: none voiced Special german needs: No Agree to transfusion: Yes service: No Current occupational status: employed Current occupational exposures/hazards: No Cognitive needs: No Hearing needs: No Vision needs: No Female Reproductive History Menstrual Age of Menarche: 13 Questionnaire PHQ-9 Over the last 2 weeks, how often have you been bothered by any of the following problems? 1. Little interest or pleasure in doing things: not at all 2. Feeling down, depressed, or hopeless: not at all 3. Trouble falling or staying asleep, or sleeping too much: not at all 4. Feeling tired or having little energy: not at all 5. Poor appetite or overeating: not at all 6. Feeling bad about yourself - or that you are a failure or have let yourself or your family down: not at all 7. Trouble concentrating on things, such as reading the newspaper or watching television: not at all 8. Moving or speaking so slowly that other people could have noticed. Or the opposite - being so fidgety or restless that you have been moving around a lot more than usual: not at all 9. Thoughts that you would be better off or of hurting yourself in some way: not at all Total score: 0 Depression Screening Interpretation: Negative Depression Screening Done: Yes 89274 - PHQ-9 Billing: Yes Source: Developed by Drs. Nestor Cano, Chantal Bridges, Louis Thrasher and colleagues, with an educational sachin from [employer]. Thrive Questionnaire Date Thrive assessed: 07/11/23 I am a: Patient What is your living situation today?: I have a steady place to live Within the past 12 months, did the food you bought not last and you didn't have the money to get more?: Never true Within the past 12 months, did you worry whether your food would run out before you got money to buy more?: Never true Do you have trouble paying for medicines?: No Do you have trouble getting transportation to medical appointments?: No Do you have trouble paying your heating and electricity bill?: No Do you have trouble taking care of your child, family member or friend?: No Do you have trouble with day-to-day activities such as bathing, preparing meals, shopping, managing finances, etc.?: No Are you currently unemployed and looking for a job?: No Are you interested in more education?: No Please select the resources that you would like help with: None Currently or been in a relationship where the following occur: no concerns reported THRIVE Score: 0 AUDIT C Alcohol Use Questionnaire (AUDIT-C) 1. How often do you have a drink containing alcohol?: Monthly or less 2. How many drinks containing alcohol do you have on a typical day when you are drinking?: 1 or 2 3. How often do you have six or more drinks on one occasion?: Never Total Score: 1 Score Reviewed/Action Taken: No IND[place]-7 AMB Questionnaire INDIANA-7 Date IND[place] - 7 assessed: 07/11/23 Feeling nervous, anxious, or on edge: 1 = Several days Not being able to stop or control worryin = Not at all Worrying too much about different things: 0 = Not at all Trouble relaxin = Not at all Being so restless that it is hard to sit still: 0 = Not at all Becoming easily annoyed or irritable: 0 = Not at all Feeling afraid as if something awful might happen: 0 = Not at all Total [place]-7 score (0-4 normal; 5-9 mild; 10-14 moderate; 15-21 severe): 1 Source: Developed by Drs. Nestor Cano, Chantal Bridges, Louis Thrasher and colleagues, with an educational sachin from [employer]. IND[place]-7 Assessment Billing INDIANA-7 Assessment Tool: IND[place]-7 Assessment 08008 Review of Systems Const All systems reviewed & are unremarkable except as noted in HPI and below Eyes Reports no additional complaints, Denies change in vision and Denies other visual disturbances Card Denies chest pain at rest, Denies chest pain with activity, Denies edema, Denies irregular heart rhythm, Denies claudication, Denies dyspnea, Denies dyspnea on exertion, Denies orthopnea, Denies paroxysmal nocturnal dyspnea and Denies slow heart rate Resp Denies cough, Denies dyspnea and Denies dyspnea on exertion GI Denies abdominal pain, Denies change in bowel habits, Denies excessive flatus, Denies nausea and Denies vomiting Denies urinary incontinence, Denies urinary hesitancy and Denies urinary urgency Musc Denies abnormal gait, Denies atrophy, Denies deformity and Denies limited range of motion Skin/Breast Denies bleeding lesions, Denies changing lesions and Denies rash Neuro Denies abnormal gait, Denies behavioral changes, Denies confusion and Denies lack of coordination Psych Denies behavioral changes and Denies confusion Physical exam (Primary Care) Vital Signs: Last Vital Signs BP 98/60 07/11/23 08:54 BMI result Body Mass Index 21.9 Tobacco/Smoking Status: Tobacco use Status Tobacco use date assessed 07/11/23 07/11/23 09:00 Patient Tobacco Use Status Never used Tobacco 07/11/23 09:00 e-Cigarette/Vaping Use Never Used 07/11/23 09:00 PHQ-9: PHQ-9 Score PHQ-9: Total score 0 07/11/23 09:00 Depression Screening Interpretation: Negative Thrive Assessment: Date of Thrive Assessment Date Thrive assessed 07/11/23 07/11/23 09:00 Currently or been in a relationship where the following occur: no concerns reported Const General: No confusion Orientation/consciousness: patient oriented x3 and No confusion HENMT Head: Yes normal to inspection, Yes normocephalic and Yes atraumatic Ears: external ears normal Eyes General: appearance normal, both eyes and all related structures Eyelids: Yes eyelids normal Conjunctivae: conjunctivae normal Neck Neck: Yes normal visual inspection and Yes supple Resp Effort & Inspection: normal respiratory effort Auscultation: clear to auscultation bilaterally Cardio Jugular venous distension: no JVD Rate: regular rate Rhythm: regular rhythm Heart sounds: S1 normal heart sound present and S2 normal heart sound present GI Inspection: Yes normal to inspection Palpation (GI): Soft to palpation and nontender Auscultation: normal bowel sounds Skin General skin exam: no rashes or lesions noted Neuro General: patient oriented x3, no focal motor deficits and No confusion Extrem General: Yes full ROM Psych Appearance: grossly normal Assessment and Plan Assessment & Plan (1) Physical exam: Code(s): Z00.00 - Encounter for general adult medical examination without abnormal findings Plan: Repeat in a year. Orders: Orders Lipid Panel Today Z00.00 - Encounter for general adult medical examination without abnormal findings Complete Blood Count Auto Diff Today D64.9 - Anemia, unspecified IRON PROFILE Today D64.9 - Anemia, unspecified Comprehensive [place]. Panel Fast Today Z00.00 - Encounter for general adult medical examination without abnormal findings Referrals DRAWING IN MACHINE TENDER HELPER Referral Z12.4 - Encounter for screening for malignant neoplasm of cervix Coding Level of Care Code Est Pt Prev Care 18-39y(22072) Diagnoses Physical exam Z00.00 Additional Codes INDIANA-7 Assessment Billing - INDIA[place]-7 Assessment Tool: IND[place]-7 Assessment 35668 ([id number]) Time Spent (min) 31
== END 2023-07-11 09:17 | disposition home or self-care (01) ==
PROVIDERS: Visit Provider Internal Medicine
DX: Z00.00 Encounter for general adult medical examination without abnormal findings (principal)
CPT/HCPCS: 99395

== ENCOUNTER 2024-05-21 07:26 | Outpatient (REF) | payer OTHER, SELFPAY ==
[2024-05-21 08:20] LABS: UPreg QC Valid YES
[2024-05-21 08:21] LABS: Urine Pregnancy NEGATIVE (NEGATIVE)
[2024-05-21 08:56] LABS: Alanine Aminotransferase 14 U/L (0-31); Albumin Level 4.3 g/dL (3.5-5.0); Alkaline Phosphatase 60 U/L (39-117); Aspartate Amino Transferase 21 U/L (5-31); Bilirubin Direct 0.1 mg/dL (0.0-0.5); Bilirubin Total 0.4 mg/dL (0.0-1.0); Cholesterol 134 mg/dL (<200); HDL Cholesterol 49 mg/dL (>40); LDL Cholesterol Calculated 72 mg/dL (<100); Total Protein 7.3 g/dL (6.5-8.0); Triglycerides 68 mg/dL (<150)
[2024-05-21 11:37] LABS: Reflex LDLD? No
== END 2024-05-21 07:27 | disposition home or self-care (01) ==
LOC: HO.LAB 07:26
PROVIDERS: PCP Internal Medicine; Visit Provider Dermatology
DX: L70.0 Acne vulgaris (principal)
CPT/HCPCS: 36415; 80061; 80076; 81025

== ENCOUNTER 2024-07-19 10:44 | Outpatient (AMB) | payer OTHER, SELFPAY ==
[2024-07-19 10:48] VITALS: BP 100/60; PULSE 78; O2SAT 99; BMI 22.7
--- NOTE | 2024-07-19 10:48 | A.OFFPC_ITS ---
Vital Signs 07/19/24 10:48 Height 5 ft Weight 116 lb 2 oz BMI 22.7 BP 100/60 Blood Pressure Location Lt brachial Position Sitting Pulse 78 Pulse Source Pulse Oximeter Pulse Oximetry (%) 99 Oxygen Delivery Method Room Air Intake Visit Reasons: Dry patches on hips, and lower back Medical Receptionist Required: No Accompanied by: Self / Same As Patient Allergies No Known Allergies Allergy (Verified 07/19/24 11:04) Medication List - Last Reconciled 07/19/24 by Zeenat Oconnell PA-C carbamide peroxide 6.5% (Debrox) 5 drps otic (ears) DAILY 4 days No Known Home Meds Tobacco use date assessed: 07/19/24 Dental Screening Dental Screen Date: 07/19/24 Did you have a dental visit in the last 12 months?: Yes Did you have a dental problem in the last 6 months where you did not have access to dental care?: No Was dental information given to patient?: Patient has dentist HPI Dry patches on hips, and lower back HPI Details 28-year-old female with past medical his tory abnormal uterine bleeding last seen 07/2023 coming in for acute problem. Presenting with dermatitis and acne. She notes experiencing annual dry skin patches beginning approximately three years ago, aligned with seasonal changes from winter to spring. The dry patches are non-pruritic, noticeable primarily after showering, and recurrently manifest in a particular skin area. The symptoms reportedly seemed to emerge . Despite no modifications to household detergents or personal care regimens, the patient contemplated potential triggers such as temperature changes during showers and dry winter air. Additionally, the patient reports chronic and persisting acne localized to her facial area, which worsened during her recent and . [facility] Medical History IUGR (intrauterine growth restriction) affecting care of mother Seborrheic dermatitis of scalp Dermatitis Scalp psoriasis Constipation Anemia Seborrheic dermatitis Surgical History H/O tubal ligation Finger laceration History of section Family History Father Medical history unknown Mother No problems noted. Maternal Grandmother Breast cancer Diabetes Maternal Grandfather No problems noted. Social History Household Members: Children Both parents involved: Yes Housing: Apartment Alcohol intake: current Alcohol intake frequency: a few times a month Alcohol type: wine Patient Tobacco Use Status: Never used Tobacco e-Cigarette/Vaping Use: Never Used Second Hand Smoke Exposure: No Trauma History: none voiced Special german needs: No Agree to transfusion: Yes service: No Current occupational status: employed Current occupational exposures/hazards: No Cognitive needs: No Hearing needs: No Vision needs: No Female Reproductive History Menstrual Age of Menarche: 13 Questionnaire PHQ-9 Over the last 2 weeks, how often have you been bothered by any of the following problems? 1. Little interest or pleasure in doing things: not at all 2. Feeling down, depressed, or hopeless: not at all 3. Trouble falling or staying asleep, or sleeping too much: not at all 4. Feeling tired or having little energy: not at all 5. Poor appetite or overeating: not at all 6. Feeling bad about yourself - or that you are a failure or have let yourself or your family down: not at all 7. Trouble concentrating on things, such as reading the newspaper or watching te levision: not at all 8. Moving or speaking so slowly that other people could have noticed. Or the opposite - being so fidgety or restless that you have been moving around a lot more than usual: not at all 9. Thoughts that you would be better off or of hurting yourself in some way: not at all Total score: 0 Depression Screening Interpretation: Negative Depression Screening Done: Yes 69968 - PHQ-9 Billing: Yes Source: Developed by Drs. Nestor Cano, Chantal Bridges, Louis Thrasher and colleagues, with an educational sachin from [employer]. Thrive Questionnaire Date Thrive assessed: 07/19/24 I am a: Patient What is your living situation today?: I have a steady place to live Within the past 12 months, did the food you bought not last and you didn't have the money to get more?: Never true Within the past 12 months, did you worry whether your food would run out before you got money to buy more?: Never true Do you have trouble paying for medicines?: No Do you have trouble getting transportation to medical appointments?: No Do you have trouble paying your heating and electricity bill?: No Do you have trouble taking care of your child, family member or friend?: No Do you have trouble with day-to-day activities such as bathing, preparing meals, shopping, managing finances, etc.?: No Are you currently unemployed and looking for a job?: No Are you interested in more education?: No Please select the resources that you would like help with: None Currently or been in a relationship where the following occur: No concerns reported THRIVE Score: 0 AUDIT C Alcohol Use Questionnaire (AUDIT-C) 1. How often do you have a drink containing alcohol?: Monthly or less 2. How many drinks containing alcohol do you have on a typical day when you are drinking?: 1 or 2 3. How often do you have six or more drinks on one occasion?: Never Total Score: 1 Score Reviewed/Action Taken: No INDIANA-7 AMB Questionnaire INDIANA-7 Date IND[place] - 7 assessed: 07/19/24 Feeling nervous, anxious, or on edge: 1 = Several days Not being able to stop or control worryin = Not at all Worrying too much about different things: 0 = Not at all Trouble relaxin = Not at all Being so restless that it is hard to sit still: 0 = Not at all Becoming easily annoyed or irritable: 0 = Not at all Feeling afraid as if something awful might happen: 0 = Not at all Total IND[place]-7 score (0-4 normal; 5-9 mild; 10-14 moderate; 15-21 severe): 1 Source: Developed by Drs. Nestor Cano, Chantal Bridges, Louis Thrasher and colleagues, with an educational sachin from [employer]. IND[place]-7 Assessment Billing INDIA[place]-7 Assessment Tool: [place]-7 Assessment 47300 Review of Systems Const Denies body aches, Denies chills, Denies fever(s), Denies headache(s) and Denies poor appetite Eyes Reports no additional complaints ENT Denies dizziness and Denies headache(s) Card Denies chest pain, Denies lightheadedness and Denies dyspnea Resp Denies dyspnea GI Reports no additional complaints Reports no additional complaints Musc Reports no additional complaints and Denies abnormal gait Skin/Breast Reports system reviewed and no additional complaints, except as documented Neuro Denies abnormal gait, Denies dizziness and Denies headache(s) Psych Reports no additional complaints Physical exam (Primary Care) Vital Signs: Last Vital Signs Pulse 78 07/19/24 10:48 BP 100/60 07/19/24 10:48 Pulse Ox 99 07/19/24 10:48 Oxygen Delivery Method Room Air 07/19/24 10:48 BMI result Body Mass Index 22.7 Tobacco/Smoking Status: Tobacco use Status Tobacco use date assessed 07/19/24 07/19/24 10:55 Patient Tobacco Use Status Never used Tobacco 07/19/24 10:49 e-Cigarette/Vaping Use Never Used 07/19/24 10:49 PHQ-9: PHQ-9 Score PHQ-9: Total score 0 07/19/24 11:28 Depression Screening Interpretation: Negative Thrive Assessment: Date of Thrive Assessment Date Thrive assessed 07/19/24 07/19/24 10:55 Currently or been in a relationship where the following occur: No concerns reported Const General: cooperative, healthy appearing, comfortable and no acute distress Orientation/consciousness: patient oriented x3 HENMT Head: Yes normocephalic Ears: hearing grossly normal bilaterally General nose exam: Normal external nose present Eyes General: appearance normal, both eyes and all related structures Conjunctivae: conjunctivae normal Neck Neck: Yes full ROM and Yes no lymphadenopathy Resp Effort & Inspection: normal respiratory effort Auscultation: clear to auscultation bilaterally, no crackles, no rales, no rhonchi and no wheezes Cardio Rate: regular rate Rhythm: regular rhythm Skin Other: scattered patches of dry, scaly skin on bilateral hips without erythema or drainage Neuro General: patient oriented x3 Gait exam (Neuro): Normal gait present Extrem General: Yes normal to inspection, Yes full ROM and No edema Psych Affect: normal affect Attitude: cooperative Insight: Good insight present (Psych) Judgement: Good judgement present (Psych) Coding Level of Care Code Est Pt Level 3 (78934) Diagnoses Dermatitis L30.9 Additional Codes INDIANA-7 Assessment Billing - IND[place]-7 Assessment Tool: [place]-7 Assessment 06929 ([id number]) PHQ-9 - 84638 - PHQ-9 Billing: Yes ([id number]) Assessment & Plan Assessment & Plan (1) Dermatitis: Code(s): L30.9 - Dermatitis, unspecified Category: Medical Plan: The management approach for the patient's dermatological issues includes the use of a topical steroid cream for dermatitis patches, with additional recommendations for substantial moisturizing treatment using Ucerin or similar products to maintain skin hydration. Abstaining from scented products was advised in an effort to limit potential irritants. Follow-up with a dermatologis t will address persistent acne concerns, previously exacerbated during , along with reviewing past medication adverse effects. Continued observation regarding seasonal changes and their impact on the current skin condition is recommended. Plan This note was constructed using voice recognition software. While every effort has been made to ensure accuracy and oxygen plant operator, still areas may have been included sometimes these areas may affect the content or meeting of the given symptoms. Total time spent caring for the patient today was 20 minutes. This includes time spent before the visit reviewing the chart, time spent during the visit, and time spent after the visit and documentation. Patient was informed and verbally consented to the use of an ambient scribe for clinic note documentation during this visit. Medications: New triamcinolone acetonide 0.5% 1 appl topical DAILY 15 grams 0RF
== END 2024-07-19 11:23 | disposition home or self-care (01) ==
LOC: HO.HMCH 10:45
PROVIDERS: PCP Internal Medicine
DX: L30.9 Dermatitis, unspecified (principal)

== ENCOUNTER → 2024-07-19 10:44 | Outpatient (BNVA) | payer OTHER, SELFPAY | PROVIDERS: PCP Internal Medicine | DX: L30.9 Dermatitis, unspecified (principal) | CPT/HCPCS: 96127; 99212 ==

== ENCOUNTER 2024-08-06 13:51 | Outpatient (AMB) | payer OTHER, SELFPAY ==
--- NOTE | 2024-08-06 14:00 | A.OFFPC_ITS ---
Vital Signs 08/06/24 14:01 Height 5 ft Weight 115 lb BMI 22.5 BP 118/68 Blood Pressure Location Lt brachial Position Sitting Intake Visit Reasons: Annual Exam Intake Note: Patient here for an annual physical exam [employer] Gas Required: No Accompanied by: Self / Same As Patient Allergies spironolactone Adverse Reaction (Intermediate, Verified 08/06/24 14:23) Palpitations Medication List - Last Reconciled 08/06/24 by Nichole Richard MD No Known Home Meds Tobacco use date assessed: 07/19/24 Dental Screening Dental Screen Date: 07/19/24 HPI HPI Comments History of Present Illness Details The patient is a 28-year-old female presenting with an annual physical examination, noting a concern regarding persistent dermatological issues, specifically acne vulgaris. The acne emerged three years ago with hormonal changes following the of her third child. Previous treatment with Spironolactone was ineffective due to adverse effects, leading to the current absence of medical therapy. She suffers from sequelae including skin changes, and her skin develops small dry patches seasonally, linked to postpartu m hormonal alterations. Additionally, ongoing constipation post-childbirth has been somewhat mitigated by increased water intake and vitamin C. - Tdap vaccination completed in 2021 - Last Pap smear in 2019, referral to [facility] MANAGER recommended - Cholesterol and liver function tests r eliable and recent, indicating no immediate need for repetition FORMERLY [facility], [facility]–1983 Medical History IUGR (intrauterine growth restriction) affecting care of mother Seborrheic dermatitis of scalp Dermatitis Scalp psoriasis Constipation Anemia Seborrheic dermatitis Surgical History H/O tubal ligation Finger laceration History of section Family History Father Medical history unknown Mother No problems noted. Maternal Grandmother Breast cancer Diabetes Maternal Grandfather No problems noted. Social History Household Members: Children Both parents involved: Yes Housing: Apartment Alcohol intake: current Alcohol intake frequency: a few times a month Alcohol type: wine Patient Tobacco Use Status: Never used Tobacco e-Cigarette/Vaping Use: Never Used Second Hand Smoke Exposure: No Trauma History: none voiced Special german needs: No Agree to transfusion: Yes service: No Current occupational status: employed Current occupational exposures/hazards: No Cognitive needs: No Hearing needs: No Vision needs: No Female Reproductive History Menstrual Age of Menarche: 13 Questionnaire PHQ-9 Over the last 2 weeks, how often have you been bothered by any of the following problems? 1. Little interest or pleasure in doing things: not at all 2. Feeling down, depressed, or hopeless: not at all 3. Trouble falling or staying asleep, or sleeping too much: not at all 4. Feeling tired or having little energy: several days 5. Poor appetite or overeating: not at all 6. Feeling bad about yourself - or that you are a failure or have let yourself or your family down: not at all 7. Trouble concentrating on things, such as reading the newspaper or watching television: not at all 8. Moving or speaking so slowly that other people could have noticed. Or the opposite - being so fidgety or restless that you have been moving around a lot more than usual: not at all 9. Thoughts that you would be better off or of hurting yourself in some way: not at all Total score: 1 Depression Screening Interpretation: Negative Depression Screening Done: Yes 04720 - PHQ-9 Billing: Yes Source: Developed by Drs. Nestor Cano, Chantal Bridges, Louis Thrasher and colleagues, with an educational sachin from [employer]. Thrive Questionnaire Date Thrive assessed: 07/30/24 I am a: Patient What is your living situation today?: I have a steady place to live Within the past 12 months, did the food you bought not last and you didn't have the money to get more?: I choose not to answer this question Within the past 12 months, did you worry whether your food would run out before you got money to buy more?: Never true Do you have trouble paying for medicines?: No Do you have trouble getting transportation to medical appointments?: No Do you have trouble paying your heating and electricity bill?: No Do you have trouble taking care of your child, family member or friend?: No Do you have trouble with day-to-day activities such as bathing, preparing meals, shopping, managing finances, etc.?: No Are you currently unemployed and looking for a job?: No Are you interested in more education?: No Please select the resources that you would like help with: None Currently or been in a relationship where the following occur: No concerns reported THRIVE Score: 0 AUDIT C Alcohol Use Questionnaire (AUDIT-C) 1. How often do you have a drink containing alcohol?: Monthly or less 2. How many drinks containing alcohol do you have on a typical day when you are drinking?: 1 or 2 3. How often do you have six or more drinks on one occasion?: Never Total Score: 1 Score Reviewed/Action Taken: No IND[place]-7 AMB Questionnaire INDIANA-7 Date IND[place] - 7 assessed: 07/19/24 Feeling nervous, anxious, or on edge: 0 = Not at all Not being able to stop or control worryin = Not at all Worrying too much about different things: 0 = Not at all Trouble relaxin = Not at all Being so restless that it is hard to sit still: 0 = Not at all Becoming easily annoyed or irritable: 0 = Not at all Feeling afraid as if something awful might happen: 0 = Not at all Total IND[place]-7 score (0-4 normal; 5-9 mild; 10-14 moderate; 15-21 severe): 0 Source: Developed by Drs. Nestor Cano, Chantal Bridges, Louis Thrasher and colleagues, with an educational sachin from [employer]. INDIANA-7 Assessment Billing INDIANA-7 Assessment Tool: INDIANA-7 Assessment 93718 Review of Systems Const All systems reviewed & are unremarkable except as noted in HPI and below Eyes Reports no additional complaints, Denies change in vision and Denies other visual disturbances Card Denies chest pain at rest, Denies chest pain with activity, Denies edema, Denies irregular heart rhythm, Denies claudication, Denies dyspnea, Denies dyspnea on exertion, Denies orthopnea, Denies paroxysmal nocturnal dyspnea and Denies slow heart rate Resp Denies cough, Denies dyspnea and Denies dyspnea on exertion GI Denies abdominal pain, Denies change in bowel habits, Denies excessive flatus, Denies nausea and Denies vomiting Denies urinary incontinence, Denies urinary hesitancy and Denies urinary urgency Physical exam (Primary Care) Vital Signs: Last Vital Signs BP 118/68 08/06/24 14:01 BMI result Body Mass Index 22.5 Tobacco/Smoking Status: Tobacco use Status Tobacco use date assessed 07/19/24 08/06/24 14:05 Patient Tobacco Use Status Never used Tobacco 08/06/24 14:05 e-Cigarette/Vaping Use Never Used 08/06/24 14:05 PHQ-9: PHQ-9 Score PHQ-9: Total score 1 08/06/24 14:05 Depression Screening Interpretation: Negative Thrive Assessment: Date of Thrive Assessment Date Thrive assessed 07/30/24 08/06/24 14:05 Currently or been in a relationship where the following occur: No concerns reported HENMT Head: Yes normal to inspection, Yes normocephalic and Yes atraumatic Ears: external ears normal Eyes General: appearance normal, both eyes and all related structures Eyelids: Yes eyelids normal Conjunctivae: conjunctivae normal Neck Neck: Yes normal visual inspection and Yes supple Resp Effort & Inspection: normal respiratory effort Auscultation: clear to auscultation bilaterally Cardio Jugular venous distension: no JVD Rate: regular rate Rhythm: regular rhythm Heart sounds: S1 normal heart sound present and S2 normal heart sound present GI Inspection: Yes normal to inspection Palpation (GI): Soft to palpation and nontender Auscultation: normal bowel sounds Skin General skin exam: no rashes or lesions noted Neuro General: no focal motor deficits Extrem General: Yes full ROM Psych Appearance: grossly normal Coding Level of Care Code Est Pt Prev Care 18-39y(52197) Diagnoses Physical exam Z00.00 Additional Codes PHQ-9 - 72682 - PHQ-9 Billing: Yes ([id number]) IND[place]-7 Assessment Billing - IND[place]-7 Assessment Tool: [place]-7 Assessment 09690 ([id number]) Time Spent (min) 31 Assessment & Plan Assessment & Plan (1) Physical exam: Code(s): Z00.00 - Encounter for general adult medical examination without abnormal findings Category: Medical Plan The patient's issues, primarily related to hormonal changes impacting dermatological health, were addressed through discussions on potential treatments. Considering her intolerance to Spironolactone, oral contraceptives were identified as a viable option for managing acne via hormonal regulation. The plan also emphasized lifestyle strategies to manage constipation effectively. Patient education multimedia resources pertaining to dermatological care were recommended to enhance self-management. An updated Pap smear was recommended to maintain adherence to health screening protocols. Overall, prioritizing safety while addressing dermatological and systemic health rounded out the patient care plan. Patient was informed and verbally consented to the use of an ambient scribe for clinic note documentation during this visit. I explained to the patient that her acne could benefit from hormonal regulation through oral contraceptives, considering her previous adverse experience with Spironolactone. Risks including potential side effects were discussed, noting that contraceptives would likely provide less cardiovascular impact. Additionally, it was important to point out the necessity for liver function and lipid monitoring, which she was already up to date with. The patient was informed about the educational materials available online on acne management, promising non-invasive treatment opportunities. Regarding her constipation, conventional dietary modifications remain the primary recommendation. For her pending Pap smear, we discussed the logistics of arranging the test with her OBGYN. We agreed on the importance of maintaining follow-up appointments to monitor her various health concerns. 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 - Continue current dietary modifications and vitamin C supplementation to manage constipation. - Follow up with an OBGYN for an updated Pap smear. - Access the recommended YouTube videos by Dr. Rey for additional acne care guidance. - Ensure ongoing monitoring of health with regular follow-up appointments.
[2024-08-06 14:01] VITALS: BP 118/68; BMI 22.5
== END 2024-08-06 14:36 | disposition home or self-care (01) ==
LOC: HO.HMCH 13:52
PROVIDERS: PCP Internal Medicine; Visit Provider Internal Medicine
DX: Z00.00 Encounter for general adult medical examination without abnormal findings (principal)

== ENCOUNTER → 2024-08-06 13:51 | Outpatient (BNVA) | payer OTHER, SELFPAY | PROVIDERS: PCP Internal Medicine; Visit Provider Internal Medicine | DX: Z00.00 Encounter for general adult medical examination without abnormal findings (principal) | CPT/HCPCS: 96127; 99395 ==

== ENCOUNTER 2025-04-01 08:09 | Outpatient (REF) | payer OTHER, SELFPAY ==
--- NOTE | 2025-04-01 08:20 | ECG_ITS ---
Test Reason : PREOP Blood Pressure : */* mmHG Vent. Rate : 70 BPM Atrial Rate : 70 BPM P-R Int : 148 ms QRS Dur : 70 ms QT Int : 344 ms P-R-T Axes : 41 70 45 degrees QTcB Int : 371 ms Normal sinus rhythm Normal ECG When compared with ECG of 08-Aug-2020 15:40, No significant change was found Referred By: Aleena Cross Electronically Signed By: Ac Gill
[2025-04-01 08:39] LABS: MANUAL DIFF FLAG NO
[2025-04-01 09:40] LABS: Hematocrit 39.3 % (37.0-47.0); Hemoglobin 13.0 g/dl (12.0-16.0); Imm Gran Abs Auto 0.01 X10*3/uL (0.00-0.03); Imm Gran Pct Auto 0.3 % (0.0-0.4); Lymphocytes Absolute Auto 1.4 X10*3/uL (1.2-4.9); Mean Corpuscular HGB Conc 33.1 g/dl (31.0-35.0); Mean Corpuscular Hemoglobin 29.5 pg (27.0-33.0); Mean Corpuscular Volume 89.1 fL (80.0-98.0); NRBC Abs Auto 0.000 X10*3/uL (0.0-0.012); NRBC Pct Auto 0.0 /100WBC (0.0-0.2); Platelet Count 245 X10*3/uL (160-400); Red Blood Count 4.41 X10*6/uL (4.20-5.50); White Blood Count 3.9 X10*3/uL (4.8-10.8)
[2025-04-01 09:43] LABS: INTERNATIONAL NORM RATIO 1.0 (0.9-1.1); Prothrombin Time 12.2 SEC (11.2-13.5)
[2025-04-01 09:54] LABS: Partial Thromboplastin Time 31.6 SEC (26.7-34.1)
[2025-04-01 10:12] LABS: Alanine Aminotransferase 19 U/L (0-31); Albumin Level 5.1 g/dL (3.5-5.0); Alkaline Phosphatase 68 U/L (39-117); Anion Gap 10 (12-20); Aspartate Amino Transferase 23 U/L (5-31); Blood Urea Nitrogen 17 mg/dL (9-16); Calcium 10.0 mg/dL (8.4-10.2); Carbon Dioxide 30 mmol/L (22-29); Chloride 105 mmol/L (96-108); Estimated Glomerular Filt Rate > 60; Potassium 3.8 mmol/L (3.3-5.1); Sodium 141 mmol/L (135-145); Total Protein 7.9 g/dL (6.5-8.0)
[2025-04-01 10:27] LABS: HBS Num1 0.26 mIU/mL (0-7.99); HBsAGNum1 0.28 S/CO (0.00-0.99); HIV Num 1 0.13 S/CO (0.00-0.99); Hepatitis B Surface Antigen Negative (Negative); ~HepC Num1 0.07 S/CO (0.00-0.79); ~Hepatitis B Surface Antibody NONREACTIVE (Nonreactive); ~Hepatitis C Antibody Nonreactive (Nonreactive)
[2025-04-01 10:33] LABS: Free T4 (Free Thyroxine) 1.00 ng/dL (0.71-1.85)
== END 2025-04-01 08:10 | disposition home or self-care (01) ==
LOC: HO.LAB 08:09
PROVIDERS: PCP Internal Medicine; Visit Provider Student in an Organized Health Care Education/Training Program
DX: Z01.810 Encounter for preprocedural cardiovascular examination (principal); Z01.818 Encounter for other preprocedural examination; Z11.4 Encounter for screening for human immunodeficiency virus [HIV]; Z11.59 Encounter for screening for other viral diseases
CPT/HCPCS: 36415; 80053; 83036; 84439; 84443; 84481; 84702; 85025; 85610; 85611; 85730; 85732; 86706; 86803; 87340; 87389; 93005

== ENCOUNTER → 2025-04-01 08:20 | Outpatient (BNV) | payer OTHER, SELFPAY | PROVIDERS: PCP Internal Medicine; Visit Provider Internal Medicine Cardiovascular Disease | DX: Z01.818 Encounter for other preprocedural examination (principal) | CPT/HCPCS: 93010 ==